=== PATIENT | female | born 1955 | race Caucasian/White ===

== ENCOUNTER → 2016-07-08 | Outpatient (CLI) | payer OTHER ==
[~2016-07-08] MED LIST: CETI10TA84 PO; CINNAMON PO; CITA20TA9 PO; Clonazepam PO; DILT240C56 PO; ELIQUIS PO; FLEC100T21 PO; FRRS300 PO; HYZ/50125 PO; LORA-741 PO; MAGN400T5 PO; METO-217 PO; MONT1TAB3 PO; MULT-506 PO; Metformin Hcl PO; OPTIRAY 320 IV PRN; POTASSIUM PO; ROSU20TA PO; VITAMIN E PO; glyburide PO
--- NOTE | 2016-07-08 15:48 | DIAGNOSTIC IMAGING REPORT ---
CHEST CT WITH CONTRAST CT DOSE: 2383.55 mGy.cm HISTORY: Ovarian carcinoma CT TECHNIQUE: Multiaxial CT images of the chest were performed following the intravenous administration of contrast. COMPARISON: 08/28/2010 FINDINGS: Lungs are considered clear. Subsegmental atelectasis posterior aspect right midlung. No significant nodular pathology on the current exam. No acute infiltrative process. Hilar and mediastinal regions remain negative for significant adenopathy. Thoracic aorta is normal in course and caliber. Axillary regions are unremarkable. Fatty infiltration of liver persists. Prior cholecystectomy change. IMPRESSION: 1. Generally stable exam the chest compared to the prior study. 2. Subsegmental atelectasis posterior right midlung. 3. Fatty infiltration of liver. 4. No evidence for new interval or progressive disease. No significant pulmonary nodularity on the current study. Electronically signed by: Genaro Adam M.D. 07/08/2016 3:46 PM Dictated Date/Time: 07/08/2016 3:42 PM
--- NOTE | 2016-07-08 15:59 | DIAGNOSTIC IMAGING REPORT ---
ABDOMEN AND PELVIS CT WITH IV AND ORAL CONTRAST CT DOSE: HISTORY: Ovarian cancer. Follow-up. TECHNIQUE: Multiaxial CT images of the abdomen and pelvis were performed following the use of intravenous and oral contrast. COMPARISON STUDY: Abdomen and pelvis CT outside hospital 11/10/2015. PET CT 01/19/2016. FINDINGS: Bibasilar linear densities favor subsegmental atelectasis. There is elevation the right hemidiaphragm, unchanged. Partially visualized central venous catheter terminates in the superior cavoatrial junction no suspicious lytic or blastic osseous lesions. Subcentimeter right cardiophrenic angle nodule/lymph nodes remain unchanged. Dominant nodule measures 6 mm. Hepatic steatosis. No hepatic or splenic masses. The adrenal glands, pancreas, and kidneys are unremarkable. No retroperitoneal lymphadenopathy. Punctate focus of gas within the bladder lumen. No bladder wall thickening. The uterus and ovaries are surgically absent. No pelvic lymphadenopathy. Cholecystectomy. No bowel wall thickening or obstruction. Normal appendix. There are few tiny perineal nodules within the right side the abdomen adjacent to the hepatic flexure of the colon and ascending colon. These remain unchanged. Dominant nodule measures up to 5 mm. IMPRESSION: No change from the prior studies. A few tiny omental soft tissue nodules within the right side of the abdomen are again noted. These remain stable in size but could represent minimal peritoneal carcinomatosis. Continued follow up is recommended. Electronically signed by: Nino Saravia M.D. 07/08/2016 3:57 PM Dictated Date/Time: 07/08/2016 3:47 PM
== END | disposition home or self-care (01) ==
LOC: C.CTS 13:41
PROVIDERS: ATTEND Internal Medicine Hematology & Oncology
DX: C56.9 Malignant neoplasm of unspecified ovary (principal); K66.8 Other specified disorders of peritoneum; J98.11 Atelectasis; K76.0 Fatty (change of) liver, not elsewhere classified

== ENCOUNTER → 2016-10-11 | Outpatient (CLI) | payer OTHER ==
[~2016-10-11] MED LIST changes: +DILT-203 PO; -DILT240C56 PO
--- NOTE | 2016-10-11 16:28 | DIAGNOSTIC IMAGING REPORT ---
CT SCAN OF THE ABDOMEN AND PELVIS WITH IV CONTRAST CLINICAL HISTORY: Ovarian cancer. COMPARISON STUDY: Abdominal CT dated 07/08/2016. PET/CT dated 01/19/2016. TECHNIQUE: Following the IV administration of 94 cc of Optiray 320, CT scan of the abdomen and pelvis is performed from the lung bases to the proximal femora. Images are reviewed in the axial, sagittal, and coronal planes. IV contrast was administered without complication. Automated dose control exposure was utilized. CT DOSE: 1191.39 mGycm FINDINGS: Lung bases: The heart is normal in size and without pericardial effusion. There is elevation of the right hemidiaphragm with right basilar atelectasis. The lung bases are otherwise clear. Liver: The contrast-enhanced liver is enlarged measuring 22.7 cm in length. The liver demonstrates diffusely diminished attenuation consistent with severe hepatic steatosis. There is no intrahepatic biliary ductal dilatation. The hepatic veins and portal veins are patent. Gallbladder: Surgically absent noting clips in the gallbladder fossa. Spleen: Normal in size and attenuation. Pancreas: Unremarkable. Adrenal glands: Unremarkable. Kidneys: The contrast enhanced kidneys are normal in size and without hydronephrosis. The kidneys enhance symmetrically. Abdominal vasculature: The abdominal aorta is normal in course and caliber noting mild to moderate atherosclerotic calcification. Bowel: The small bowel and colon are normal in course and caliber. The appendix is normal as visualized. Peritoneum: There is no intraperitoneal free air or abdominal ascites. Tiny foci of omental nodularity measure up to 6 mm have not significantly changed from prior studies. Slasher Runner nodules are seen in the right cardiophrenic region on image #112, in the right lower quadrant on images #285 and #310, and the left upper quadrant on image #237. There is a fat-containing umbilical hernia. Lymphadenopathy: None. Pelvic viscera: The bladder is normal as visualized. The uterus is surgically absent. No adnexal lesion is seen. Skeletal structures: The skeletal structures are osteopenic. There is mild lumbosacral spondylosis. No lytic or blastic lesions are seen. IMPRESSION: 1. There is no evidence of progressive metastatic disease. 2. Scattered tiny foci of omental nodularity are nonspecific and not significantly changed from prior studies. Tiny peritoneal implants are not excluded and continued attention at follow-up is recommended. There is no associated abdominal ascites. 3. No additional findings are identified concerning for intra-abdominal metastatic disease. 4. Hepatomegaly and severe hepatic steatosis. 5. Additional findings as above. Electronically signed by: Luis Adan M.D. 10/11/2016 4:26 PM Dictated Date/Time: 10/11/2016 4:18 PM
== END | disposition home or self-care (01) ==
LOC: C.CTS 13:01
PROVIDERS: ATTEND Internal Medicine Hematology & Oncology
DX: C56.9 Malignant neoplasm of unspecified ovary (principal); R16.0 Hepatomegaly, not elsewhere classified; K76.0 Fatty (change of) liver, not elsewhere classified

== ENCOUNTER → 2016-12-14 | Outpatient (CLI) | payer OTHER ==
--- NOTE | 2016-12-14 10:17 | DIAGNOSTIC IMAGING REPORT ---
(CHEST) THORAX WITH CLINICAL HISTORY: 61 years-old Female presenting with follow-up of ovarian cancer. TECHNIQUE: Multidetector CT imaging of the chest was performed after the administration of intravenous contrast. IV contrast: 93 mL of Optiray 320. A dose lowering technique was used consistent with the principles of ALARA (as low as reasonably achievable). COMPARISON: 07/08/2016. CT DOSE (mGy.cm): The estimated cumulative dose is 388.47 mGycm. FINDINGS: Enzyme Chemist topogram: Right internal jugular Mediport terminates in the region of the superior cavoatrial junction. On soft tissue windows, normal thyroid and thoracic inlet. No axillary, supraclavicular, hilar, or mediastinal lymphadenopathy. Few prominent pericardial lymph nodes, nonspecific. These are unchanged from prior. Normal aorta. Normal heart size. No pericardial or pleural effusion. Hepatic steatosis suggested. Cholecystectomy clips. On lung windows, persistent bandlike opacity in the superior segment of the right upper lobe. Lungs otherwise clear. Airways patent. On bone windows, degenerative changes of the spine. IMPRESSION: 1. No evidence of intrathoracic metastatic disease. No lymphadenopathy. 2. Persistent right lung scarring or atelectasis. 3. Hepatic steatosis. Electronically signed by: Barrie Salmeron M.D. 12/14/2016 10:16 AM Dictated Date/Time: 12/14/2016 10:11 AM
== END | disposition home or self-care (01) ==
LOC: C.CTS 09:42
PROVIDERS: ATTEND Internal Medicine Hematology & Oncology
DX: C56.9 Malignant neoplasm of unspecified ovary (principal); K76.0 Fatty (change of) liver, not elsewhere classified

== ENCOUNTER → 2017-01-11 | Outpatient (CLI) | payer OTHER ==
[~2017-01-11] MED LIST changes: -OPTIRAY 320 IV PRN
--- NOTE | 2017-01-12 13:38 | MAMMOGRAPHY REPORT ---
BILATERAL DIGITAL SCREENING MAMMOGRAM TOMOSYNTHESIS WITH CAD: 01/11/2017 CLINICAL HISTORY: Routine screening. TECHNIQUE: Breast tomosynthesis in addition to standard 2D mammography was performed. Current study was also evaluated with a Computer Aided Detection (CAD) system. COMPARISON: Comparison is made to exams dated: 12/25/2015 mammogram, 11/28/2014 mammogram, 12/10/2013 ma mmogram, 11/27/2013 mammogram, 11/22/2012 mammogram, and 11/10/2011 mammogram - [facility] ter. BREAST COMPOSITION: The tissue of both breasts is heterogeneously dense, which may obscure small mas ses. FINDINGS: There are benign coarse and round microcalcifications scattered bilaterally. Stable nodul arity in the medial left breast. No suspicious spiculated or irregular mass, architectural distortion or cluster of new, suspicious microcalcifications is seen. IMPRESSION: ACR BI-RADS CATEGORY 2: BENIGN There is no mammographic evidence of malignancy. A 1 year screening mammogram is recommended. The pa tient will receive written notification of the results. Approximately 10% of breast cancers are not detected with mammography. A negative mammographic report should not delay biopsy if a clinically suggestive mass is present. Barbi Godfrey M.D. ay/:01/11/2017 15:43:08 Construction Stonemason: Julien MUSE)(Sahra), [facility] letter sent: Normal 1/2 BI-RADS Code: ACR BI-RADS Category 2: Benign
== END | disposition home or self-care (01) ==
LOC: C.MAMM 10:38
PROVIDERS: ATTEND Obstetrics & Gynecology
DX: Z12.31 Encounter for screening mammogram for malignant neoplasm of breast (principal)

== ENCOUNTER → 2017-04-14 | Outpatient (CLI) | payer OTHER ==
[~2017-04-14] MED LIST changes: +OPTIRAY 320 IV PRN
--- NOTE | 2017-04-14 16:25 | DIAGNOSTIC IMAGING REPORT ---
(CHEST) THORAX WITH CT DOSE: 1751.92 mGycm HISTORY: Ovarian carcinoma OVARIAN CA TECHNIQUE: Multiaxial CT images of the chest were performed following the intravenous administration of contrast. A dose lowering technique was utilized adhering to the principles of ALARA. COMPARISON: 12/14/2016 FINDINGS: Unchanging linear scarring of the right lung. No new or interval finding. No significant nodular pathology. Several small mid mediastinal nodes unchanged and technically considered to be low suspicion. These again are unchanged and stable. Thoracic aorta is normal in course and caliber. Central catheter in superior vena cava. Persistent hepatomegaly with components of fatty infiltration. IMPRESSION: Chronic change. No acute process. No evidence for metastatic disease in the chest. The above report was generated using voice recognition software. It may contain grammatical, syntax or spelling errors. Electronically signed by: Genaro Adam M.D. 04/14/2017 4:23 PM Dictated Date/Time: 04/14/2017 4:20 PM
--- NOTE | 2017-04-14 16:34 | DIAGNOSTIC IMAGING REPORT ---
ABD/PELVIS IV AND ORAL CONT CT DOSE: HISTORY: Ovarian carcinoma OVARIAN CA TECHNIQUE: Multiaxial CT images of the abdomen and pelvis were performed following the use of intravenous and oral contrast. A dose lowering technique was utilized adhering to the principles of ALARA. COMPARISON STUDY: 10/11/2016 FINDINGS: Unchanged examination compared to the prior study. Fatty replacement of the liver with evidence for stable hepatomegaly. Unchanging findings of a prior cholecystectomy. The spleen is uniform. Pancreas adrenal glands and kidneys are unremarkable. Pattern is nonobstructive. Minimal omental nodularity previously described remains stable. There is no evidence for progressive nodular pathology. All nodules produces described again are stable. No significant adenopathy within the abdominal or pelvic region. IMPRESSION: 1. Stable unchanged exam compared to the prior study. 2. Unchanging O mental micronodularity . No evidence for new interval or progressive omental nodules. 3. Unchanging hepatomegaly with underlying fatty replacement The above report was generated using voice recognition software. It may contain grammatical, syntax or spelling errors. Electronically signed by: Genaro Adam M.D. 04/14/2017 4:32 PM Dictated Date/Time: 04/14/2017 4:26 PM
== END | disposition home or self-care (01) ==
LOC: C.CTS 14:27
PROVIDERS: ATTEND Internal Medicine Hematology & Oncology
DX: C56.9 Malignant neoplasm of unspecified ovary (principal); K66.8 Other specified disorders of peritoneum; R16.0 Hepatomegaly, not elsewhere classified; K76.0 Fatty (change of) liver, not elsewhere classified

== ENCOUNTER 2021-10-07 09:51 | Inpatient (IN) ==
[2021-10-07 11:21] LABS: Albumin Globulin Ratio 1.4 (0.9-2); Albumin Level 3.5 gm/dl (3.4-5.0); Bilirubin,Total 0.7 mg/dl (0.2-1.0); Calcium 8.4 mg/dl (8.5-10.1); Creatinine Clr Calc Pharmacy 46.8 ml/min; Est GFR (African American) 47.6 ml/min; Est GFR (Non-African American) 41.1 ml/min; Globulin 2.5 gm/dl (2.5-4.0); Potassium 4.5 mmol/L (3.5-5.1)
[2021-10-07 11:22] LABS: Troponin I High Sensitivity 7.1 pg/ml (0-14)
--- NOTE | 2021-10-07 11:24 | Emergency Department Note ---
History of Present Illness General Chief complaint: Shortness of Breath/Dyspnea Stated complaint: SOB, CRACKLING IN LUNGS, HYPERTENSION Time Seen by Provider: 10/07/21 10:57 History of Present Illness Provider complaint: shortness of breath, fatigue, sent from cardiology office This is a 66 yo female who presents after being referred from her outpatient senior quality analyst during a routine appointment after discussing her fatigue, lightheadedness, and dyspnea. Staff performed orthostatics in the office which were positive and she was referred to the ER. Patient does have a hx of metastatic ovarian cancer and is receiving chemo every other week. Last infusion was last week. She also takes tamoxifen daily. She states she began to develop slight congestion and cough, with worsening dyspnea with exertion and lighteadedness with standing and position change. She states she first began notiving symptoms last . She denies chest pain, palpitations, leg swelling, abdominal pain, or fevers. No known sick contacts. Patient does take eliquis due to hx of a.fib. No prior need for blood transfusions. She denies melena or hematochezia. No hx of bleeding from other sites. Patient initially seen in conjunction with the family practice resident Dr. Moran. Pt seen during a time of high acuity and national emergency pandemic while wearing PPE. Home Medications Medication Instructions Recorded Confirmed Type multivitamin 1 tab PO DAILY #0 11/11/09 10/07/21 History magnesium oxide 400 mg PO DAILY #0 tab 07/18/12 10/07/21 History montelukast 10 mg tablet 10 mg PO HS #0 tab 07/18/12 10/07/21 History (Singulair) cetirizine 10 mg tablet 10 mg PO DAILY #0 tab 08/11/15 10/07/21 History clonazepam 1 mg tablet 1 mg PO HS #0 08/11/15 10/07/21 History flecainide 100 mg tablet 100 mg PO QPM #0 tab 08/11/15 10/07/21 History glyburide 5 mg tablet 5 mg PO DAILY #0 08/11/15 10/07/21 History metformin 750 mg tablet,extended 750 mg PO BID #0 08/11/15 10/07/21 History release 24 hr metoprolol succinate 50 mg 50 mg PO HS #30 tab 08/11/15 10/07/21 History tablet,extended release 24 hr rosuvastatin 20 mg tablet (Crestor) 20 mg PO DAILY 30 Days #30 tab 08/11/15 10/07/21 History lorazepam 0.5 mg tablet 0.5 mg PO DAILY PRN #0 tab 08/18/15 10/07/21 History diltiazem HCl 30 mg tablet 30 mg PO BID 04/19/19 10/07/21 History (Cardizem) docusate sodium 100 mg tablet 200 mg PO HS 04/19/19 10/07/21 History (Stool Softener) fluoxetine 40 mg capsule (Prozac) 40 mg PO QAM 04/19/19 10/07/21 History trazodone 50 mg tablet 75 mg PO HS PRN 04/19/19 10/07/21 History flecainide 50 mg tablet 50 mg PO DAILY 10/07/21 10/07/21 History zolpidem 5 mg tablet (Ambien) 5 mg PO HS PRN 10/07/21 10/07/21 History cephalexin 500 mg capsule 500 mg PO BID #4 cap 10/08/21 Rx Allergies Allergy/AdvReac Type Severity Reaction Status Date / Time codeine Allergy Unknown itchy, Verified 10/07/21 16:20 nausea lisinopril Allergy Unknown Cough Verified 10/07/21 16:20 prochlorperazine AdvReac Mild Nausea Verified 10/07/21 16:20 [From Compazine] Sulfa (Sulfonamide AdvReac Mild Stomach Verified 10/07/21 16:20 Antibiotics) upset azithromycin AdvReac Nausea Verified 10/07/21 16:20 CONTRAST MEDIA AdvReac Mild RASH, Uncoded 10/07/21 16:20 TINGLING IN HANDS Past Med/Surg History Medical History (Updated 10/09/21 @ 00:01 by Jolene Roca DO) Anxiety Atrial fibrillation Cancer ovarian Depression Diabetes mellitus, type 2 GERD (gastroesophageal reflux disease) Hypothyroidism Osteoarthritis Peripheral neuropathy Supraclavicular lymphadenopathy Surgical History (Updated 10/07/21 @ 14:45 by Latrell Valadez) H/O colonoscopy History of cardiac cath History of cholecystectomy History of hysterectomy History of hysterectomy with bilateral oophorectomy History of nasal septoplasty History of tonsillectomy History of vascular access device Family History (Updated 10/07/21 @ 14:38 by Latrell Valadez) Mother , age 86 COPD (chronic obstructive pulmonary disease) Father Lung cancer Social History (Updated 10/08/21 @ 00:18 by Latrell Valadez) Smoking Status: Former smoker Tobacco Type: Cigarettes packs per day: 0.25; Years Smoked: 40; Second Hand Exposure: No; Hx Alcohol Use: No Hx Substance Use: No Preferred Language: Omani Communication Ability: Effective Stage Settings Painter Required: No Beliefs That Will Affect Care: None marital status: Current Living Situation: Spouse current occupational status: employed current occupation: works at [employer] How many Children do You have: 0 Feels Safe at Home: Yes Assistive Devices: None Review of Systems A total of 10 systems reviewed and were otherwise negative All systems reviewed & are unremarkable except as noted in HPI & below Physical Exam Vital Signs Vital Signs - 24 hr 10/07/21 09:52 10/07/21 09:57 10/07/21 10:59 Temperature 36.4 C L Temperature Source Temporal Artery Scan Pulse Rate 76 Respiratory Rate 20 Respiratory Effort / Characteristics Non-Labored Spontaneous Non-Labored Spontaneous Respiratory Depth Normal Respiratory Pattern Regular Blood Pressure 108/50 L Blood Pressure Mean 69 Blood Pressure Position Sitting Pulse Oximetry 97 97 Oxygen Delivery Method Room Air Room Air Room Air Oxygen Flow Rate 98 Sepsis Recent Fever Within 48 Hours No Sepsis New/Unexplained Change in Mental Status N/A Sepsis Action Taken by Nursing No Action Required 10/07/21 11:00 10/07/21 11:42 10/07/21 12:01 Temperature Temperature Source Pulse Rate 67 82 66 Respiratory Rate 19 20 22 Respiratory Effort / Characteristics Respiratory Depth Respiratory Pattern Blood Pressure 125/70 112/85 112/39 L Blood Pressure Mean 88 94 63 Blood Pressure Position Pulse Oximetry 96 98 97 Oxygen Delivery Method Oxygen Flow Rate Sepsis Recent Fever Within 48 Hours Sepsis New/Unexplained Change in Mental Status Sepsis Action Taken by Nursing 10/07/21 12:30 10/07/21 13:00 10/07/21 14:00 Temperature Temperature Source Pulse Rate 65 63 65 Respiratory Rate 28 H 24 23 Respiratory Effort / Characteristics Respiratory Depth Respiratory Pattern Blood Pressure 136/55 L 130/70 127/63 Blood Pressure Mean 82 90 84 Blood Pressure Position Pulse Oximetry 96 94 96 Oxygen Delivery Method Oxygen Flow Rate Sepsis Recent Fever Within 48 Hours Sepsis New/Unexplained Change in Mental Status Sepsis Action Taken by Nursing GENERAL: alert, unwell appearing, well nourished, no distress, non-toxic EYE EXAM: normal conjunctiva, PERRL and EOM's grossly intact OROPHARYNX: no exudate, no erythema, lips, buccal mucosa, and tongue normal and mucous membranes are moist NECK: supple, no nuchal rigidity, no adenopathy, non-tender LUNGS: Clear to auscultation. Normal chest wall mechanics, no w/r/r HEART: no murmurs, S1 normal and S2 normal ABDOMEN: abdomen soft, non-tender, normo-active bowel sounds, no masses, no rebound or guarding. BACK: Back is symmetrical on inspection and there is no deformity, no midline tenderness, no CVA tenderness. SKIN: no rashes and no bruising, pallor UPPER EXTREMITIES: upper extremities are grossly normal. FROM, nml pulses b/l. LOWER EXTREMITIES: No pitting edema. FROM, nml pulses b/l. NEURO EXAM: Normal sensorium, cranial nerves II-XII grossly intact, normal speech, no gross weakness of arms, no gross weakness of legs. Gross sensation intact. Course Administered Medications Discontinued Medications Cephalexin HCl (Cephalexin 500 Mg Cap) 500 mg PO NOW [facility] Stop: 10/07/21 15:19 Last Admin: 10/07/21 15:26 Dose: 500 mg Documented by: [id number] Cephalexin HCl (Cephalexin 500 Mg Cap) 500 mg PO BID [facility]; Protocol Stop: 10/12/21 20:59 Last Admin: 10/08/21 07:50 Dose: 500 mg Documented by: [id number] Admin: 10/07/21 20:25 Dose: 500 mg Documented by: [id number] Cetirizine HCl (Cetirizine Hcl 10 Mg Tablet) 10 mg PO DAILY [facility] Stop: 11/07/21 08:59 Last Admin: 10/08/21 07:50 Dose: 10 mg Documented by: [id number] Clonazepam (Clonazepam 1 Mg Tab) 1 mg PO HS [facility] Stop: 11/06/21 20:59 Last Admin: 10/07/21 21:25 Dose: 1 mg Documented by: [id number] Diltiazem HCl (Diltiazem Hcl 30 Mg Tab) 30 mg PO BID [facility] Stop: 11/06/21 20:59 Last Admin: 10/08/21 07:50 Dose: 30 mg Documented by: [id number] Admin: 10/07/21 20:26 Dose: 30 mg Documented by: [id number] Flecainide Acetate (Flecainide Acetate 100 Mg Tablet) 100 mg PO Q12 [facility] Stop: 11/06/21 20:59 Last Admin: 10/08/21 07:50 Dose: 100 mg Documented by: [id number] Admin: 10/07/21 20:25 Dose: 100 mg Documented by: [id number] Fluoxetine HCl (Fluoxetine Hcl 20 Mg Cap) 40 mg PO QAM [facility] Stop: 11/07/21 08:59 Last Admin: 10/08/21 07:51 Dose: 40 mg Documented by: [id number] Furosemide (Furosemide Inj 20 Mg/2 Ml Vial) 20 mg IV ONE ONE Stop: 10/08/21 00:14 Last Admin: 10/08/21 00:28 Dose: 20 mg Documented by: [id number] Gabapentin (Gabapentin 300 Mg Cap) 300 mg PO HS [facility] Stop: 11/06/21 20:59 Last Admin: 10/07/21 20:31 Dose: Not Given Documented by: [id number] Heparin Sodium (Porcine) (Heparin 100 Unit/Ml 5ml Flush) 5 ml FLUSH PRN PRN PRN Reason: Flush Stop: 11/07/21 06:24 Last Admin: 10/08/21 07:13 Dose: 5 ml Documented by: [id number] Iron Sucrose 300 mg/ Sodium (Chloride) 265 mls @ 176.667 mls/hr IV TODAY@0900 ONE Stop: 10/08/21 10:29 Last Infusion: 10/08/21 09:28 Dose: 0 mls/hr Documented by: [id number] Admin: 10/08/21 07:49 Dose: 176.7 mls/hr Documented by: [id number] Magnesium Sulfate/Dextrose (Magnesium Sulfate / D5w) 1 gm in 100 mls @ 50 mls/hr IV Q2H [facility] Stop: 10/08/21 15:29 Last Admin: 10/08/21 15:33 Dose: 50 mls/hr Documented by: [id number] Infusion: 10/08/21 15:32 Dose: 0 mls/hr Documented by: [id number] Admin: 10/08/21 13:35 Dose: 50 mls/hr Documented by: [id number] Infusion: 10/08/21 13:34 Dose: 0 mls/hr Documented by: [id number] Admin: 10/08/21 11:26 Dose: 50 mls/hr Documented by: [id number] Infusion: 10/08/21 11:26 Dose: 0 mls/hr Documented by: [id number] Infusion: 10/08/21 11:25 Dose: 0 mls/hr Documented by: [id number] Admin: 10/08/21 09:37 Dose: 50 mls/hr Documented by: [id number] Insulin Aspart (Insulin Aspart Per Unit) 0 units SC ACHS [facility] Stop: 11/06/21 17:40 Last Admin: 10/08/21 17:05 Dose: Not Given Documented by: [id number] Admin: 10/08/21 12:01 Dose: Not Given Documented by: [id number] Admin: 10/08/21 08:03 Dose: Not Given Documented by: [id number] Admin: 10/07/21 20:24 Dose: Not Given Documented by: [id number] Admin: 10/07/21 18:26 Dose: Not Given Documented by: [id number] Levothyroxine Sodium ([facility]othyroxine S[facility] 50 Mcg Tablet) [facility]: 11/07/21 06:29 Last Admin: 10/08/21 06:07 Dose: Not Given Documented by: [id number] Magnesium Oxide (Magnesium Oxide 400 Mg Tab) 400 mg PO DAILY [facility] Stop: 11/07/21 08:59 Last Admin: 10/08/21 07:51 Dose: 400 mg Documented by: [id number] Metoprolol Succinate (Metoprolol Succ 50mg Ext Rel Tab) 50 mg PO [facility] Stop: 11/06/21 20:59 Last Admin: 10/07/21 21:23 Dose: 50 mg Documented by: [id number] Montelukast Sodium (Montelukast Sodium 10 Mg Tablet) 10 mg PO HS [facility] Stop: 11/06/21 20:59 Last Admin: 10/07/21 21:23 Dose: 10 mg Documented by: [id number] Multivitamins (Multivitamin Tab) 1 tab PO DAILY [facility] Stop: 11/07/21 08:59 Last Admin: 10/08/21 07:51 Dose: 1 tab Documented by: [id number] Ondansetron HCl (Ondansetron Inj 2 Mg/Ml 2 Ml Vial) 4 mg IV NOW STA Stop: 10/07/21 15:50 Last Admin: 10/07/21 16:03 Dose: 4 mg Documented by: [id number] Ondansetron HCl (Ondansetron Inj 2 Mg/Ml 2 Ml Vial) 4 mg IV Q6H PRN PRN Reason: Nausea Stop: 11/06/21 17:40 Last Admin: 10/08/21 15:33 Dose: 4 mg Documented by: [id number] Admin: 10/08/21 07:54 Dose: 4 mg Documented by: [id number] Pantoprazole Sodium (Pantoprazole 40 Mg Tab) 40 mg PO QAM [facility] Stop: 11/07/21 08:59 Last Admin: 10/08/21 07:50 Dose: 40 mg Documented by: [id number] Rosuvastatin Calcium (Rosuvastatin Calcium 20 Mg Tab) 20 mg PO DAILY [facility] Stop: 11/07/21 08:59 Last Admin: 10/08/21 07:51 Dose: 20 mg Documented by: [id number] Senna/Docusate Sodium (Docusate Sodium/Senna 50/8.6mg Tab) 2 tab PO HS [facility] Stop: 11/06/21 20:59 Last Admin: 10/07/21 20:25 Dose: 2 tab Documented by: [id number] Simethicone (Simethicone 80 Mg Chew) 80 mg PO Q6H PRN PRN Reason: bloating, gas Stop: 11/06/21 19:47 Last Admin: 10/07/21 21:23 Dose: 80 mg Documented by: [id number] Critical Care Time Critical Care Time: Yes Total Critical Care Time: 35 Critical care of 35 min performed to assess and manage high likelihood of life- threatening anemia, involving labs and imaging performed with assessment to evaluate anemia and SOB diagnosis with frequent reassessment. This time includes bedside time, treatment discussions with patient/family/consultants, documentation time and excludes procedure time. Medical Decision Making Differential Diagnosis Differential diagnoses includes but is not limited to pneumonia, bronchitis, COPD/Asthma exacerbation, pneumothorax, pulmonary embolism, congestive heart failure, acute coronary syndrome Medical Records Attestation: I reviewed the patient's medical records. Home Medications Current Medication List: was personally reviewed by me Laboratory Data Attestation: I reviewed the patient's lab results. Result diagrams: 10/08/21 06:20 10/08/21 06:20 Lab Results 10/07/21 10/07/21 10/07/21 Range/Units 10:34 10:34 10:34 WBC 6.29 (4.8-10.8) K/ul RBC 1.07 L (3.93-5.22) M/uL Hgb 3.8 L* (12.0-16.0) g/dl Hct 12.2 L* (34.1-44.9) % MCV 114.0 H (80.0-100.0) fL MCH 35.5 H (25.0-34.0) pg MCHC 31.1 L (32.0-36.0) g/dL RDW Std Deviation 93.5 H (36.4-46.3) fL RDW Coeff of Teddy 23.0 H (11.5-14.5) % Plt Count 42 L (130-400) K/uL MPV 11.5 (9.4-12.3) fL Immature Gran % (Auto) 0.6 % Neut % (Auto) 71.0 % Lymph % (Auto) 13.8 % [place] % (Auto) 14.1 % Eos % (Auto) 0.3 % Baso % (Auto) 0.2 % Neut # (Auto) 4.46 (1.4-6.5) K/uL Lymph # (Auto) 0.87 L (1.2-3.4) K/uL [place] # (Auto) 0.89 H (0.24-0.82) K/uL Eos # (Auto) 0.02 (0-0.50) K/uL Baso # (Auto) 0.01 (0-0.2) K/uL Immature Gran # (Auto) 0.04 H (0.00-0.02) K/uL Absolute Nucleated RBC 0.03 H (0-0) K/uL Nucleated RBC % (auto) 0.5 % Anisocytosis Present Macrocytosis Present PT 12.2 H (9.0-12.0) Seconds INR 1.2 H (0.9-1.1) APTT 71.8 H* (21.0-31.0) Seconds PTT Ratio 2.6 VBG pH (7.36-7.41) VBG pCO2 (38-50) mmHg VBG pO2 mmHg VBG HCO3 mmol/L VBG O2 Saturation % VBG Base Excess mEq/L Sodium 136 (136-145) mmol/L Potassium 4.5 (3.5-5.1) mmol/L Chloride 103 (98-107) mmol/L Carbon Dioxide 23 (21-32) mmol/L Anion Gap 10 (3-11) BUN 31 H (6-23) mg/dl Creatinine 1.35 H (0.6-1.2) mg/dl Est Cr Clr Drug Dosing 46.8 ml/min Est GFR ( Amer) 47.6 ml/min Est GFR (Non-Af Amer) 41.1 ml/min BUN/Creatinine Ratio 23.0 H (10-20) Glucose 188 H (70-99(Fasting)) mg/dl Calcium 8.4 L (8.5-10.1) mg/dl Iron (35-150) mcg/dl TIBC (250-450) mcg/dl Unsaturated IBC (155-355) mcg/dl Transferrin % Sat (15-50) % Ferritin (8-388) ng/ml Total Bilirubin 0.7 (0.2-1.0) mg/dl AST 15 (13-39) U/L ALT 10 (7-52) U/L Alkaline Phosphatase 54 (34-104) U/L Troponin I High Sens 7.1 (0-14) pg/ml Total Protein 6.0 (6.0-8.3) gm/dl Albumin 3.5 (3.4-5.0) gm/dl Globulin 2.5 (2.5-4.0) gm/dl Albumin/Globulin Ratio 1.4 (0.9-2) Vitamin B12 (180-914) pg/ml Folate (>5.38) ng/ml TSH (0.300-4.500) uIu/ml Urine Color Urine Appearance (Clear) Urine pH (4.5-7.5) Ur Specific Jeannette (1.000-1.030) Urine Protein (Negative) Urine Glucose (UA) (Negative) Urine Ketones (Negative) Urine Blood (Negative) Urine Nitrite (Negative) Urine Bilirubin (Negative) Urine Urobilinogen (Negative) Ur Leukocyte Esterase (Negative) Urine WBC (Auto) (0-5) /hpf Urine RBC (Auto) (0-4) /hpf U Hyaline Cast (Auto) (0-5) /lpf U Epithel Cells (Auto) (0-5) /lpf Urine Bacteria (Auto) (Negative) SARS-CoV-2 (PCR) (Negative) SARS-CoV-2 RNA (ARIA) Blood Type Antibody Screen Antibody Identification Antibody ID Comment Antigen Identification Crossmatch 10/07/21 10/07/21 10/07/21 Range/Units 10:34 10:34 10:34 WBC (4.8-10.8) K/ul RBC (3.93-5.22) M/uL Hgb (12.0-16.0) g/dl Hct (34.1-44.9) % MCV (80.0-100.0) fL MCH (25.0-34.0) pg MCHC (32.0-36.0) g/dL RDW Std Deviation (36.4-46.3) fL RDW Coeff of Teddy (11.5-14.5) % Plt Count (130-400) K/uL MPV (9.4-12.3) fL Immature Gran % (Auto) % Neut % (Auto) % Lymph % (Auto) % [place] % (Auto) % Eos % (Auto) % Baso % (Auto) % Neut # (Auto) (1.4-6.5) K/uL Lymph # (Auto) (1.2-3.4) K/uL [place] # (Auto) (0.24-0.82) K/uL Eos # (Auto) (0-0.50) K/uL Baso # (Auto) (0-0.2) K/uL Immature Gran # (Auto) (0.00-0.02) K/uL Absolute Nucleated RBC (0-0) K/uL Nucleated RBC % (auto) % Anisocytosis Macrocytosis PT (9.0-12.0) Seconds INR (0.9-1.1) APTT (21.0-31.0) Seconds PTT Ratio VBG pH (7.36-7.41) VBG pCO2 (38-50) mmHg VBG pO2 mmHg VBG HCO3 mmol/L VBG O2 Saturation % VBG Base Excess mEq/L Sodium (136-145) mmol/L Potassium (3.5-5.1) mmol/L Chloride (98-107) mmol/L Carbon Dioxide (21-32) mmol/L Anion Gap (3-11) BUN (6-23) mg/dl Creatinine (0.6-1.2) mg/dl Est Cr Clr Drug Dosing ml/min Est GFR ( Amer) ml/min Est GFR (Non-Af Amer) ml/min BUN/Creatinine Ratio (10-20) Glucose (70-99(Fasting)) mg/dl Calcium (8.5-10.1) mg/dl Iron 111 (35-150) mcg/dl TIBC 460 H (250-450) mcg/dl Unsaturated IBC 349 (155-355) mcg/dl Transferrin % Sat 24 (15-50) % Ferritin 26.3 (8-388) ng/ml Total Bilirubin (0.2-1.0) mg/dl AST (13-39) U/L ALT (7-52) U/L Alkaline Phosphatase (34-104) U/L Troponin I High Sens (0-14) pg/ml Total Protein (6.0-8.3) gm/dl Albumin (3.4-5.0) gm/dl Globulin (2.5-4.0) gm/dl Albumin/Globulin Ratio (0.9-2) Vitamin B12 > 1500 H (180-914) pg/ml Folate > 22.30 (>5.38) ng/ml TSH 3.682 (0.300-4.500) uIu/ml Urine Color Urine Appearance (Clear) Urine pH (4.5-7.5) Ur Specific [place]ann[place] (1.000-1.030) Urine Protein (Negative) Urine Glucose (UA) (Negative) Urine Ketones (Negative) Urine Blood (Negative) Urine Nitrite (Negative) Urine Bilirubin (Negative) Urine Urobilinogen (Negative) Ur Leukocyte Esterase (Negative) Urine WBC (Auto) (0-5) /hpf Urine RBC (Auto) (0-4) /hpf U Hyaline Cast (Auto) (0-5) /lpf U Epithel Cells (Auto) (0-5) /lpf Urine Bacteria (Auto) (Negative) SARS-CoV-2 (PCR) (Negative) SARS-CoV-2 RNA (ARIA) Blood Type Antibody Screen Antibody Identification Antibody ID Comment Antigen Identification Crossmatch 10/07/21 10/07/21 10/07/21 Range/Units 11:25 11:25 11:25 WBC (4.8-10.8) K/ul RBC (3.93-5.22) M/uL Hgb 4.0 L* (12.0-16.0) g/dl Hct 13.0 L* (34.1-44.9) % MCV (80.0-100.0) fL MCH (25.0-34.0) pg MCHC (32.0-36.0) g/dL RDW Std Deviation (36.4-46.3) fL RDW Coeff of Teddy (11.5-14.5) % Plt Count (130-400) K/uL MPV (9.4-12.3) fL Immature Gran % (Auto) % Neut % (Auto) % Lymph % (Auto) % [place] % (Auto) % Eos % (Auto) % Baso % (Auto) % Neut # (Auto) (1.4-6.5) K/uL Lymph # (Auto) (1.2-3.4) K/uL [place] # (Auto) (0.24-0.82) K/uL Eos # (Auto) (0-0.50) K/uL Baso # (Auto) (0-0.2) K/uL Immature Gran # (Auto) (0.00-0.02) K/uL Absolute Nucleated RBC (0-0) K/uL Nucleated RBC % (auto) % Anisocytosis Macrocytosis PT (9.0-12.0) Seconds INR (0.9-1.1) APTT (21.0-31.0) Seconds PTT Ratio VBG pH 7.42 H (7.36-7.41) VBG pCO2 39 (38-50) mmHg VBG pO2 29 mmHg VBG HCO3 25 mmol/L VBG O2 Saturation < 60.0 % VBG Base Excess 0.8 mEq/L Sodium (136-145) mmol/L Potassium (3.5-5.1) mmol/L Chloride (98-107) mmol/L Carbon Dioxide (21-32) mmol/L Anion Gap (3-11) BUN (6-23) mg/dl Creatinine (0.6-1.2) mg/dl Est Cr Clr Drug Dosing ml/min Est GFR ( Amer) ml/min Est GFR (Non-Af Amer) ml/min BUN/Creatinine Ratio (10-20) Glucose (70-99(Fasting)) mg/dl Calcium (8.5-10.1) mg/dl Iron (35-150) mcg/dl TIBC (250-450) mcg/dl Unsaturated IBC (155-355) mcg/dl Transferrin % Sat (15-50) % Ferritin (8-388) ng/ml Total Bilirubin (0.2-1.0) mg/dl AST (13-39) U/L ALT (7-52) U/L Alkaline Phosphatase (34-104) U/L Troponin I High Sens (0-14) pg/ml Total Protein (6.0-8.3) gm/dl Albumin (3.4-5.0) gm/dl Globulin (2.5-4.0) gm/dl Albumin/Globulin Ratio (0.9-2) Vitamin B12 (180-914) pg/ml Folate (>5.38) ng/ml TSH (0.300-4.500) uIu/ml Urine Color Urine Appearance (Clear) Urine pH (4.5-7.5) Ur Specific [place] (1.000-1.030) Urine Protein (Negative) Urine Glucose (UA) (Negative) Urine Ketones (Negative) Urine Blood (Negative) Urine Nitrite (Negative) Urine Bilirubin (Negative) Urine Urobilinogen (Negative) Ur Leukocyte Esterase (Negative) Urine WBC (Auto) (0-5) /hpf Urine RBC (Auto) (0-4) /hpf U Hyaline Cast (Auto) (0-5) /lpf U Epithel Cells (Auto) (0-5) /lpf Urine Bacteria (Auto) (Negative) SARS-CoV-2 (PCR) (Negative) SARS-CoV-2 RNA (ARIA) Blood Type O Positive Antibody Screen POSITIVE A Antibody Identification Anti-K Antibody ID Comment Antigen Identification K Antigen - NEGATIVE Crossmatch See Detail 10/07/21 10/07/21 10/07/21 Range/Units 11:25 11:25 11:40 WBC (4.8-10.8) K/ul RBC (3.93-5.22) M/uL Hgb (12.0-16.0) g/dl Hct (34.1-44.9) % MCV (80.0-100.0) fL MCH (25.0-34.0) pg MCHC (32.0-36.0) g/dL RDW Std Deviation (36.4-46.3) fL RDW Coeff of Teddy (11.5-14.5) % Plt Count (130-400) K/uL MPV (9.4-12.3) fL Immature Gran % (Auto) % Neut % (Auto) % Lymph % (Auto) % [place] % (Auto) % Eos % (Auto) % Baso % (Auto) % Neut # (Auto) (1.4-6.5) K/uL Lymph # (Auto) (1.2-3.4) K/uL [place] # (Auto) (0.24-0.82) K/uL Eos # (Auto) (0-0.50) K/uL Baso # (Auto) (0-0.2) K/uL Immature Gran # (Auto) (0.00-0.02) K/uL Absolute Nucleated RBC (0-0) K/uL Nucleated RBC % (auto) % Anisocytosis Macrocytosis PT (9.0-12.0) Seconds INR (0.9-1.1) APTT (21.0-31.0) Seconds PTT Ratio VBG pH (7.36-7.41) VBG pCO2 (38-50) mmHg VBG pO2 mmHg VBG HCO3 mmol/L VBG O2 Saturation % VBG Base Excess mEq/L Sodium (136-145) mmol/L Potassium (3.5-5.1) mmol/L Chloride (98-107) mmol/L Carbon Dioxide (21-32) mmol/L Anion Gap (3-11) BUN (6-23) mg/dl Creatinine (0.6-1.2) mg/dl Est Cr Clr Drug Dosing ml/min Est GFR ( Amer) ml/min Est GFR (Non-Af Amer) ml/min BUN/Creatinine Ratio (10-20) Glucose (70-99(Fasting)) mg/dl Calcium (8.5-10.1) mg/dl Iron (35-150) mcg/dl TIBC (250-450) mcg/dl Unsaturated IBC (155-355) mcg/dl Transferrin % Sat (15-50) % Ferritin (8-388) ng/ml Total Bilirubin (0.2-1.0) mg/dl AST (13-39) U/L ALT (7-52) U/L Alkaline Phosphatase (34-104) U/L Troponin I High Sens (0-14) pg/ml Total Protein (6.0-8.3) gm/dl Albumin (3.4-5.0) gm/dl Globulin (2.5-4.0) gm/dl Albumin/Globulin Ratio (0.9-2) Vitamin B12 (180-914) pg/ml Folate (>5.38) ng/ml TSH (0.300-4.500) uIu/ml Urine Color Yellow Urine Appearance Clear (Clear) Urine pH 6.5 (4.5-7.5) Ur Specific Jeannette 1.010 (1.000-1.030) Urine Protein Negative (Negative) Urine Glucose (UA) Negative (Negative) Urine Ketones Negative (Negative) Urine Blood Negative (Negative) Urine Nitrite Negative (Negative) Urine Bilirubin Negative (Negative) Urine Urobilinogen Negative (Negative) Ur Leukocyte Esterase Trace H (Negative) Urine WBC (Auto) 1-5 (0-5) /hpf Urine RBC (Auto) 0-4 (0-4) /hpf U Hyaline Cast (Auto) 0 (0-5) /lpf U Epithel Cells (Auto) 10-20 H (0-5) /lpf Urine Bacteria (Auto) 2+ H (Negative) SARS-CoV-2 (PCR) NEGATIVE (Negative) SARS-CoV-2 RNA (ARIA) Cancelled Blood Type Antibody Screen Antibody Identification Antibody ID Comment Antigen Identification Crossmatch Imaging Data Radiologist's Impression: Chest X-Ray 10/07/21 10:59 XR chest 1V portable HISTORY: 66 years-old Female Dyspnea acute shortness of breath COMPARISON: Chest CT 04/23/2021 TECHNIQUE: Portable AP view of the chest FINDINGS: The cardiac silhouette is enlarged. Right IJ [id number] catheter is noted with distal tip in the location of the mid SVC. Mild right hemidiaphragmatic elevation. Mild linear scarring versus atelectasis of the right midlung. No pneumothorax, pleural effusion, airspace consolidation or overt pulmonary edema. Hyperdense structure in the medial right lung base redemonstrated. Right-sided rotator cuff calcific tendinosis. 1.9 cm calcified structure superior to the l eft clavicle redemonstrated. IMPRESSION: 1. Cardiomegaly without acute process. 2. Unchanged right hemidiaphragmatic elevation with linear right midlung atelectasis/scarring. ACT 112: Negative or not required by law. The above report was generated using voice recognition software. It may contain grammatical, syntax or spelling errors. Electronically signed by: Irineo Chew M.D. 10/07/2021 12:46 PM Abdomen/Pelvis CT 10/07/21 12:11 CT abd pelvis wo con CLINICAL HISTORY: anemia . Dizziness. History of ovarian cancer COMPARISON STUDY: 04/23/2021 CT DOSE: 1118.87 mGycm TECHNIQUE: Standard CT of the Abdomen and Pelvis was performed without IV contrast. The patient did not receive oral contrast. A dose lowering technique was utilized adhering to the principles of ALARA. FINDINGS: Lung base: The lung bases are clear. Calcification is again seen the right middle lobe. Abdominal cavity: There is no evidence for abdominal mass, adenopathy or ascites. There is a recurrent umbilical hernia with bowel loops seen projecting into the hernia sac. There is again a calcified nodule seen within the hernia as well. Additional calcified lymph nodes/masses are again seen within the retroperitoneum, sarbjit hepatis, right pelvic sidewall, right rectus abdominal muscle and left anterior abdominal wall which are again not significantly changed. No definite new masses are identified. Liver: The liver is homogeneous in attenuation on these limited noncontrast images.. Spleen: The spleen is homogeneous in attenuation on these limited noncontrast images. Pancreas: The pancreas is homogeneous in attenuation on these limited noncontrast images. Gall Bladder: Surgical clips are again seen. Adrenal glands: The adrenal glands are normal in size and attenuation on these limited noncontrast images. Kidneys: The kidneys are homogeneous in attenuation on these limited noncontrast images. There is no evidence for gross renal mass, calculus or hydronephrosis bilaterally. Bowel: The bowel loops are normally placed within the abdomen and pelvis without evidence for dilatation or obstruction. There is no evidence for mass lesion. There are no inflammatory changes present. There is no evidence for free air. Bladder: There is distention of the bladder with no evidence for focal bladder wall thickening, calculus or diverticulum. : There is no evidence for pelvic mass or adenopathy. The patient is again status post hysterectomy with no recurrent pelvic mass Vasculature: There is no evidence for focal aneurysmal dilatation of the abdominal aorta. Atherosclerotic calcification is present. Osseous structures: There is no acute osseous pathology. Degenerative changes are seen within the spine. IMPRESSION: 1. Interval recurrence of umbilical hernia with bowel loops extending into the hernia sac. No obstruction or incarceration. 2. No other evidence for acute intra-abdominal or pelvic abnormality on these limited noncontrast images. 3. Calcified lymph nodes/masses are again seen and essentially unchanged with no new metastatic disease identified. ACT 112: Negative or not required by law. Electronically signed by: Joseph Powers M.D. 10/07/2021 1:29 PM ECG Data Attestation: I personally reviewed and interpreted this ECG as follows: Indication: + SOB/dyspnea Rate (beats per minute): 77 Rhythm: + normal sinus ECG Intervals/blocks: + First degree AV block, + Normal QRS and + Normal QT ECG [place]: + Normal ECG ST segments: + Nonspecific ST abnormalities MDM Narrative An order was placed for continuous cardiac monitoring. The monitor shows a rate of _82__ with _normal sinus_ rhythm. This is a 66 yo female who presents from her cardiologists office after reporting several symptoms and having positive orthostatics. VS stable and pt afebrile on arrival here. Patient with known metastatic ovarian cancer receiving chemotherapy. Labs sent and patient placed in a room as soon as possible as patient presented on a day of high volume and acuity. Lab called with initial Hgb 3.8. A repeat was ordered and social work case manager able to obtain recent outpatient H/H for comparison. Prior H/H over the last several months were low and declining, however not low enough to warrant transfusion. Patient updated on results and signed blood consent form. Transfusion started while in the ER, 2 units ordered initially. CXR reassuring. CT a/p also performed as a precaution given significant decrease in Hgb and use of anticoagulation, no evidence of intraabdominal or retroperitoneal bleeding. Patient denied noting any bleeding from any source. CAse discussed with hospitalist for addition evaluation and treatment. Impression & Plan RENTERIA (dyspnea on exertion), Ovarian cancer, Thrombocytopenia, Anemia, Generalized weakness Discharge Plan Visit Data Chief Complaint: Shortness of Breath/Dyspnea Stated Complaint: SOB, CRACKLING IN LUNGS, HYPERTENSION ED Provider: Jolene Roca ED Midlevel Provider: Mikael Moran Discharge Problem: RENTERIA (dyspnea on exertion), Ovarian cancer, Thrombocytopenia, Anemia, Generalized weakness Patient Disposition: Admitted As Inpatient Discharge Instructions Interventions: ED Discharge Assessment Last Done: 10/07/21 16:48 Discharge Problem: Ovarian cancer Qualifiers: Laterality: unspecified laterality Qualified Code(s): C56.9 - Malignant neoplasm of unspecified ovary Anemia Qualifiers: Anemia type: unspecified type Qualified Code(s): D64.9 - Anemia, unspecified
[2021-10-07 11:36] LABS: Base Excess VBG 0.8 mEq/L; HCO3 VBG 25 mmol/L; Oxygen Saturation VBG < 60.0 %; PCO2 VBG 39 mmHg (38-50); PO2 VBG 29 mmHg; pH VBG 7.42 (7.36-7.41)
[2021-10-07 11:45] LABS: Hematocrit (blood only) 12.2 % (34.1-44.9); Hemoglobin 3.8 g/dl (12.0-16.0); Mean Corpuscular Hemoglobin 35.5 pg (25.0-34.0); Mean Corpuscular Hgb Conc 31.1 g/dL (32.0-36.0); Mean Platelet Volume 11.5 fL (9.4-12.3); Nucleated RBC # (auto) 0.03 K/uL (0-0); Nucleated RBC % (auto) 0.5 %; Platelet Count 42 K/uL (130-400); RDW Standard Deviation 93.5 fL (36.4-46.3); Red Blood Count 1.07 M/uL (3.93-5.22); White Blood Count 6.29 K/ul (4.8-10.8)
[2021-10-07 11:57] LABS: Anisocytosis Present; Basophils # (auto) 0.01 K/uL (0-0.2); Basophils % (auto) 0.2 %; Eosinophils # (auto) 0.02 K/uL (0-0.50); Eosinophils % (auto) 0.3 %; Immature Granulocytes # (auto) 0.04 K/uL (0.00-0.02); Immature Granulocytes % (auto) 0.6 %; Lymphocytes # (auto) 0.87 K/uL (1.2-3.4); Lymphocytes % (auto) 13.8 %; Macrocytosis Present; Monocytes # (auto) 0.89 K/uL (0.24-0.82); Monocytes % (auto) 14.1 %; Neutrophils # (auto) 4.46 K/uL (1.4-6.5)
[2021-10-07 12:05] LABS: Appearance Urine Clear (Clear); Bacteria Urine Automated 2+ (Negative); Bilirubin Urine Negative (Negative); Blood Urine Negative (Negative); Cast Urine Automated 0 /lpf (0-5); Color Urine Yellow; Glucose Urine UA Negative (Negative); Ketones Urine Negative (Negative); Leukocyte Esterase Urine Trace (Negative); Nitrite Urine Negative (Negative); Protein Urine Negative (Negative); RBC Urine Automated 0-4 /hpf (0-4); Urobilinogen Urine Negative (Negative); pH Urine 6.5 (4.5-7.5)
[2021-10-07] MEDS ORDERED: SODIUM CHLORIDE 0.9% 250 ML IV PRN (12:11)
[2021-10-07 12:40] LABS: INR 1.2 (0.9-1.1); Partial Thromboplastin Ratio 2.6; Prothrombin Time 12.2 Seconds (9.0-12.0)
[2021-10-07 12:45] LABS: Partial Thromboplastin Time 71.8 Seconds (21.0-31.0)
--- NOTE | 2021-10-07 12:47 | XRay Report ---
XR chest 1V portable HISTORY: 66 years-old Female Dyspnea acute shortness of breath COMPARISON: Chest CT 04/23/2021 TECHNIQUE: Portable AP view of the chest FINDINGS: The cardiac silhouette is enlarged. Right IJ [id number] catheter is noted with distal tip in the l ocation of the mid SVC. Mild right hemidiaphragmatic elevation. Mild linear scarring versus atelectas is of the right midlung. No pneumothorax, pleural effusion, airspace consolidation or overt pulmonary edema. Hyperdense structure in the medial right lung base redemonstrated. Right-sided rotator cuff c alcific tendinosis. 1.9 cm calcified structure superior to the left clavicle redemonstrated. IMPRESSION: 1. Cardiomegaly without acute process. 2. Unchanged right hemidiaphragmatic elevation with linear right midlung atelectasis/scarring. ACT 112: Negative or not required by law. The above report was generated using voice recognition software. It may contain grammatical, syntax o r spelling errors. Electronically signed by: Irineo Chew M.D. 10/07/2021 12:46 PM
--- NOTE | 2021-10-07 13:30 | CT Scan Report ---
CT abd pelvis wo con CLINICAL HISTORY: anemia . Dizziness. History of ovarian cancer COMPARISON STUDY: 04/23/2021 CT DOSE: 1118.87 mGycm TECHNIQUE: Standard CT of the Abdomen and Pelvis was performed without IV contrast. The patient did not receive oral contrast. A dose lowering technique was utilized adhering to the principles of KALEB Davis. FINDINGS: Lung base: The lung bases are clear. Calcification is again seen the right middle lobe. Abdominal cavity: There is no evidence for abdominal mass, adenopathy or ascites. There is a recurren t umbilical hernia with bowel loops seen projecting into the hernia sac. There is again a calcified n odule seen within the hernia as well. Additional calcified lymph nodes/masses are again seen within the retroperitoneum, sarbjit hepatis, rig ht pelvic sidewall, right rectus abdominal muscle and left anterior abdominal wall which are again no t significantly changed. No definite new masses are identified. Liver: The liver is homogeneous in attenuation on these limited noncontrast images.. Spleen: The spleen is homogeneous in attenuation on these limited noncontrast images. Pancreas: The pancreas is homogeneous in attenuation on these limited noncontrast images. Gall Bladder: Surgical clips are again seen. Adrenal glands: The adrenal glands are normal in size and attenuation on these limited noncontrast im ages. Kidneys: The kidneys are homogeneous in attenuation on these limited noncontrast images. There is no evidence for gross renal mass, calculus or hydronephrosis bilaterally. Bowel: The bowel loops are normally placed within the abdomen and pelvis without evidence for dilatat ion or obstruction. There is no evidence for mass lesion. There are no inflammatory changes present. There is no evidence for free air. Bladder: There is distention of the bladder with no evidence for focal bladder wall thickening, calcu jessy or diverticulum. : There is no evidence for pelvic mass or adenopathy. The patient is again status post hysterectomy with no recurrent pelvic mass Vasculature: There is no evidence for focal aneurysmal dilatation of the abdominal aorta. Atheroscler otic calcification is present. Osseous structures: There is no acute osseous pathology. Degenerative changes are seen within the spi ne. IMPRESSION: 1. Interval recurrence of umbilical hernia with bowel loops extending into the hernia sac. No obstruc tion or incarceration. 2. No other evidence for acute intra-abdominal or pelvic abnormality on these limited noncontrast juana ges. 3. Calcified lymph nodes/masses are again seen and essentially unchanged with no new metastatic disea se identified. ACT 112: Negative or not required by law. Electronically signed by: Joseph Powers M.D. 10/07/2021 1:29 PM
--- NOTE | 2021-10-07 14:21 | History & Physical Report ---
Date of Service October 07, 2021 Assessment & Plan (1) Macrocytic anemia: Plan: SEVERE, with presenting Hb of 4. Dr Roca, ER attending, obtained old records and her hemoglobin was 7.9 on September 14, 2021. To the patient's knowledge she has never been told she had nutritional deficiencies. She has not required pRBC support in several years even in the face of her advanced ovarian cancer. Her dizziness, dyspnea, etc are all likely due to the severe anemia. B12/folate/TSH levels are all wnl. Fe studies show low ferritin in the mid 20s. She has not had overt melena or BRBPR. [id number] she is at risk of occult GI bleeding because of her Eliquis use. Perhaps her chemotherapy is contributing to the macrocytosis. She could also have other micronutrient deficiencies (copper, etc) although these are rare. Plan - * hold eliquis * Tx 2 units PRBCs with post-Tx CBC * if Hb still <7 then transfuse a 3rd unit, and follow such with IV lasix 20mg x 1 * add PPI if she is having any upper occult GI bleeding * GI consultation in am for consideration of EGD if fecal occult is positive * consider hemolysis w/u (LDH, haptoglobin, etc) although the normal t.bili makes hemolysis less likely * no schistocytes were reported on the CBC; thus, despite the presence of her thrombocytopenia, TTP highly unlikely * will ask Dr Rose to see in am for any other recommendations * will also provide 1 dose of IV venofer tomorrow AM (300mg x 1) due to ferritin in the 20s (2) Dizziness: Plan: 2nd to severe anemia with resulting orthostasis. Orthostasis/dizziness should improve promptly with blood transfusion. Hold metoprolol. Reasonable to continue low-dose diltiazem for now. (3) Thrombocytopenia: Plan: Severe. B12/folate wnl. No evidence of TTP based on CBC and other labs (stable renal function, no schistocytes, mental status wnl, etc). I assume this is 2nd to her chemotherapy (cisplatin) that was given within the last 2-3 weeks. HOLD Eliquis due to high risk of bleeding. Repeat CBC tonight and again in am. (4) Ovarian cancer: Plan: stage 4. initial dx 2016. follows with Dr Mcgovern in [place]. See HPI for further details. CT abd/pelvis with stable findings per radiology. (5) Hypertension: Plan: HOLD metoprolol. Can cont low-dose diltiazem for her a.fib. (6) History of hysterectomy with bilateral oophorectomy: Plan: 2nd ovarian ca. (7) UTI (urinary tract infection): Plan: patient reports urinary frequency. 2+ bacteria on urine micro. send culture. start keflex 500mg BID for simple, uncomplicated UTI. (8) Prolonged QT interval: Plan: 2nd to flecainide? check mag level in am. K wnl. place on telemetry. (9) Supraclavicular lymphadenopathy: Plan: left. 2nd ovarian cancer. per patient the node has gotten smaller within the last few months with chemo. (10) PAF (paroxysmal atrial fibrillation): Plan: in NSR at time of admission. follows with Dr Lizarraga. remains on CCB, BB, and flecainide with Eliquis for anticoagulation. HOLD ELIQUIS given severe anemia with severe thrombocytopenia and heightened bleeding risk. (11) Hypothyroidism: Plan: TSH wnl cont synthroid (12) Diabetes mellitus, type 2: Plan: hold metformin hold glyburide novolog SSI BSGs q6h History of Present Illness Chief Complaint: dizziness Primary Care Provider: Stacia Rajput DO 66yo female with history of a.fib - followed by Dr Deacon Lizarraga [facility] cardiology - presents from that office due to severe orthostasis. For the last few days she has felt very dizzy and lightheaded with standing/activity. No syncope but has had near-syncope. Walking has been very difficulty because of the dizziness. No vertigo. Symptoms started last . Denies seeing any melena or BRBPR. No h/o GI bleeding in the past. Due to the persistent dizziness she was concerned that perhaps it was her a.fib causing the symptoms. Thus, she called to schedule a visit with Dr Lizarraga and did see him in the office today. While at that visit she had severe orthostatic hypotension on orthostatic checks. EKG showed NSR. She was referred to the ER for evaluation. In addition to the above she has felt short of breath for some time (months or longer) but it got significantly worse in the last few days. Last chemotherapy was about 1 month ago (Avastin/cisplatin to her recollection). Cycles are q4 weeks. Current chemotherapy is under the direction of Dr Connor Mcgovern, oncologist in [place]. Last office visit with him was also about 1 month ago. Ovarian cancer - initial dx May 2015. She was initially treated at [facility]. She had cancer recurrence and treatment resumed about [address] Mcgovern's guidance. She has not required blood transfusion in the last year. No nutritional deficiencies have been noted by her primary oncologist/pattern maker. Also sees Dr Irineo Burgos at [facility] (gyne onc). Allergies Allergy/AdvReac Type Severity Reaction Status Date / Time codeine Allergy Unknown itchy, Verified 10/07/21 16:20 nausea lisinopril Allergy Unknown Cough Verified 10/07/21 16:20 prochlorperazine AdvReac Mild Nausea Verified 10/07/21 16:20 [From Compazine] Sulfa (Sulfonamide AdvReac Mild Stomach Verified 10/07/21 16:20 Antibiotics) upset azithromycin AdvReac Nausea Verified 10/07/21 16:20 CONTRAST MEDIA AdvReac Mild RASH, Uncoded 10/07/21 16:20 TINGLING IN HANDS Home Medications Medication Instructions Recorded Confirmed Type multivitamin 1 tab PO DAILY #0 11/11/09 10/07/21 History magnesium oxide 400 mg PO DAILY #0 tab 07/18/12 10/07/21 History montelukast 10 mg tablet 10 mg PO HS #0 tab 07/18/12 10/07/21 History (Singulair) apixaban 5 mg tablet (Eliquis) 5 mg PO BID #0 08/11/15 10/07/21 History cetirizine 10 mg tablet 10 mg PO DAILY #0 tab 08/11/15 10/07/21 History clonazepam 1 mg tablet 1 mg PO HS #0 08/11/15 10/07/21 History flecainide 100 mg tablet 100 mg PO QPM #0 tab 08/11/15 10/07/21 History glyburide 5 mg tablet 5 mg PO DAILY #0 08/11/15 10/07/21 History metformin 750 mg tablet,extended 750 mg PO BID #0 08/11/15 10/07/21 History release 24 hr metoprolol succinate 50 mg 50 mg PO HS #30 tab 08/11/15 10/07/21 History tablet,extended release 24 hr rosuvastatin 20 mg tablet (Crestor) 20 mg PO DAILY 30 Days #30 tab 08/11/15 10/07/21 History lorazepam 0.5 mg tablet 0.5 mg PO DAILY PRN #0 tab 08/18/15 10/07/21 History diltiazem HCl 30 mg tablet 30 mg PO BID 04/19/19 10/07/21 History (Cardizem) docusate sodium 100 mg tablet 200 mg PO HS 04/19/19 10/07/21 History (Stool Softener) fluoxetine 40 mg capsule (Prozac) 40 mg PO QAM 04/19/19 10/07/21 History trazodone 50 mg tablet 75 mg PO HS PRN 04/19/19 10/07/21 History flecainide 50 mg tablet 50 mg PO DAILY 10/07/21 10/07/21 History zolpidem 5 mg tablet (Ambien) 5 mg PO HS PRN 10/07/21 10/07/21 History Past Med/Surg History Medical History (Updated 10/08/21 @ 00:41 by Latrell Valadez) Anxiety Atrial fibrillation Cancer ovarian Depression Diabetes mellitus, type 2 GERD (gastroesophageal reflux disease) Hypothyroidism Osteoarthritis Peripheral neuropathy Supraclavicular lymphadenopathy Surgical History (Updated 10/07/21 @ 14:45 by Latrell Valadez) H/O colonoscopy History of cardiac cath History of cholecystectomy History of hysterectomy History of hysterectomy with bilateral oophorectomy History of nasal septoplasty History of tonsillectomy History of vascular access device Family History (Updated 10/07/21 @ 14:38 by Latrell Valadez) Mother , age 86 COPD (chronic obstructive pulmonary disease) Father Lung cancer Social History (Updated 10/08/21 @ 00:18 by Latrell Valadez) Smoking Status: Former smoker Tobacco Type: Cigarettes packs per day: 0.25; Years Smoked: 40; Second Hand Exposure: No; Hx Alcohol Use: No Hx Substance Use: No Preferred Language: Yemeni Communication Ability: Effective Order Packer Or Packager Required: No Beliefs That Will Affect Care: None marital status: Current Living Situation: Spouse current occupational status: employed current occupation: works at [employer] How many Children do You have: 0 Feels Safe at Home: Yes Assistive Devices: Glasses Review of Systems Review of Systems: gen - no fevers or chills; appetite poor - chronic; lost 60 pounds in 2020, then gained some back after fall 2020 eyes - last few days she sees "spots" with standing HENT - no dysphagia; chronic nasal drainage, sore throats cv - no chest pains pulm - chronic dyspnea, chronic cough, no sputum GI - no melena; no BRBPR; chronic nausea due to chemo; no abd pain - no dysuria; no hematuria musculo - no myalgias skin - no rash endo - BSGs - doesn't check neuro - no headaches chronically; occasional numbness legs; dizziness x 1 week psych - depression from her cancer Physical Exam Physical Exam: gen - NAD, very pleasant, awake/alert skin - severe pallor; no rash; dermatofibromas vs other type of scars on anterior shins chest - port R upper chest clean eyes - PERRL HENT - MMM, no lesions neck - no JVD heart - RRR, s1 s2, 2/6 DAVE LSB lungs - CTA b/l abd - soft, minimally distended, BS+, NT, no HSM ext - <1+ edema b/l, pulses 2+ b/l LIAM - deferred neuro - strength 5/5 x 4 exts; mild resting tremor; DTRs slightly brisk but symmetric b/l upper & lower extremities psych - a/o x 3 lymph - supraclavicular node present on left, about 1.5cm in size Results & Data Results & Data ([facility]) Vital Signs (Past 12 Hours) Vital Signs Temp Pulse Resp BP Pulse Ox 10/07/21 14:00 65 23 127/63 96 10/07/21 13:00 63 24 130/70 94 10/07/21 12:30 65 28 H 136/55 L 96 10/07/21 12:01 66 22 112/39 L 97 10/07/21 11:42 82 20 112/85 98 10/07/21 11:00 67 19 125/70 96 10/07/21 10:59 97 10/07/21 09:57 36.4 C L 76 20 108/50 L 97 Laboratory Results Laboratory Results - last 24 hr 07/06/22 07/06/22 07/06/22 10:34 10:34 10:34 WBC 6.29 RBC 1.07 L Hgb 3.8 L* Hct 12.2 L* MCV 114.0 H MCH 35.5 H MCHC 31.1 L RDW Std Deviation 93.5 H RDW Coeff of Teddy 23.0 H Plt Count 42 L MPV 11.5 Immature Gran % (Auto) 0.6 Neut % (Auto) 71.0 Lymph % (Auto) 13.8 [place] % (Auto) 14.1 Eos % (Auto) 0.3 Baso % (Auto) 0.2 Neut # (Auto) 4.46 Lymph # (Auto) 0.87 L [place] # (Auto) 0.89 H Eos # (Auto) 0.02 Baso # (Auto) 0.01 Immature Gran # (Auto) 0.04 H Absolute Nucleated RBC 0.03 H Nucleated RBC % (auto) 0.5 Anisocytosis Present Macrocytosis Present PT 12.2 H INR 1.2 H APTT 71.8 H* PTT Ratio 2.6 VBG pH VBG pCO2 VBG pO2 VBG HCO3 VBG O2 Saturation VBG Base Excess Sodium 136 Potassium 4.5 Chloride 103 Carbon Dioxide 23 Anion Gap 10 BUN 31 H Creatinine 1.35 H Est Cr Clr Drug Dosing 46.8 Est GFR ( Amer) 47.6 Est GFR (Non-Af Amer) 41.1 BUN/Creatinine Ratio 23.0 H Glucose 188 H POC Glucose Calcium 8.4 L Iron TIBC Unsaturated IBC Transferrin % Sat Ferritin Total Bilirubin 0.7 AST 15 ALT 10 Alkaline Phosphatase 54 Troponin I High Sens 7.1 Total Protein 6.0 Albumin 3.5 Globulin 2.5 Albumin/Globulin Ratio 1.4 Vitamin B12 Folate TSH Urine Color Urine Appearance Urine pH Ur Specific [place] Urine Protein Urine Glucose (UA) Urine Ketones Urine Blood Urine Nitrite Urine Bilirubin Urine Urobilinogen Ur Leukocyte Esterase Urine WBC (Auto) Urine RBC (Auto) U Hyaline Cast (Auto) U Epithel Cells (Auto) Urine Bacteria (Auto) SARS-CoV-2 (PCR) SARS-CoV-2 RNA (ARIA) Blood Type Antibody Screen Antibody Identification Antibody ID Comment Antigen Identification Crossmatch 10/07/21 10/07/21 10/07/21 10:34 10:34 10:34 WBC RBC Hgb Hct MCV MCH MCHC RDW Std Deviation RDW Coeff of Teddy Plt Count MPV Immature Gran % (Auto) Neut % (Auto) Lymph % (Auto) [place] % (Auto) Eos % (Auto) Baso % (Auto) Neut # (Auto) Lymph # (Auto) [place] # (Auto) Eos # (Auto) Baso # (Auto) Immature Gran # (Auto) Absolute Nucleated RBC Nucleated RBC % (auto) Anisocytosis Macrocytosis PT INR APTT PTT Ratio VBG pH VBG pCO2 VBG pO2 VBG HCO3 VBG O2 Saturation VBG Base Excess Sodium Potassium Chloride Carbon Dioxide Anion Gap BUN Creatinine Est Cr Clr Drug Dosing Est GFR ( Amer) Est GFR (Non-Af Amer) BUN/Creatinine Ratio Glucose POC Glucose Calcium Iron 111 TIBC 460 H Unsaturated IBC 349 Transferrin % Sat 24 Ferritin 26.3 Total Bilirubin AST ALT Alkaline Phosphatase Troponin I High Sens Total Protein Albumin Globulin Albumin/Globulin Ratio Vitamin B12 > 1500 H Folate > 22.30 TSH 3.682 Urine Color Urine Appearance Urine pH Ur Specific [place] Urine Protein Urine Glucose (UA) Urine Ketones Urine Blood Urine Nitrite Urine Bilirubin Urine Urobilinogen Ur Leukocyte Esterase Urine WBC (Auto) Urine RBC (Auto) U Hyaline Cast (Auto) U Epithel Cells (Auto) Urine Bacteria (Auto) SARS-CoV-2 (PCR) SARS-CoV-2 RNA (ARIA) Blood Type Antibody Screen Antibody Identification Antibody ID Comment Antigen Identification Crossmatch 10/07/21 10/07/21 10/07/21 11:25 11:25 11:25 WBC RBC Hgb 4.0 L* Hct 13.0 L* MCV MCH MCHC RDW Std Deviation RDW Coeff of Teddy Plt Count MPV Immature Gran % (Auto) Neut % (Auto) Lymph % (Auto) [place] % (Auto) Eos % (Auto) Baso % (Auto) Neut # (Auto) Lymph # (Auto) [place] # (Auto) Eos # (Auto) Baso # (Auto) Immature Gran # (Auto) Absolute Nucleated RBC Nucleated RBC % (auto) Anisocytosis Macrocytosis PT INR APTT PTT Ratio VBG pH 7.42 H VBG pCO2 39 VBG pO2 29 VBG HCO3 25 VBG O2 Saturation < 60.0 VBG Base Excess 0.8 Sodium Potassium Chloride Carbon Dioxide Anion Gap BUN Creatinine Est Cr Clr Drug Dosing Est GFR ( Amer) Est GFR (Non-Af Amer) BUN/Creatinine Ratio Glucose POC Glucose Calcium Iron TIBC Unsaturated IBC Transferrin % Sat Ferritin Total Bilirubin AST ALT Alkaline Phosphatase Troponin I High Sens Total Protein Albumin Globulin Albumin/Globulin Ratio Vitamin B12 Folate TSH Urine Color Urine Appearance Urine pH Ur Specific [place] Urine Protein Urine Glucose (UA) Urine Ketones Urine Blood Urine Nitrite Urine Bilirubin Urine Urobilinogen Ur Leukocyte Esterase Urine WBC (Auto) Urine RBC (Auto) U Hyaline Cast (Auto) U Epithel Cells (Auto) Urine Bacteria (Auto) SARS-CoV-2 (PCR) SARS-CoV-2 RNA (ARIA) Blood Type O Positive Antibody Screen POSITIVE A Antibody Identification Anti-K Antibody ID Comment Antigen Identification K Antigen - NEGATIVE Crossmatch See Detail 10/07/21 10/07/21 10/07/21 11:25 11:25 11:40 WBC RBC Hgb Hct MCV MCH MCHC RDW Std Deviation RDW Coeff of Teddy Plt Count MPV Immature Gran % (Auto) Neut % (Auto) Lymph % (Auto) [place] % (Auto) Eos % (Auto) Baso % (Auto) Neut # (Auto) Lymph # (Auto) [place] # (Auto) Eos # (Auto) Baso # (Auto) Immature Gran # (Auto) Absolute Nucleated RBC Nucleated RBC % (auto) Anisocytosis Macrocytosis PT INR APTT PTT Ratio VBG pH VBG pCO2 VBG pO2 VBG HCO3 VBG O2 Saturation VBG Base Excess Sodium Potassium Chloride Carbon Dioxide Anion Gap BUN Creatinine Est Cr Clr Drug Dosing Est GFR ( Amer) Est GFR (Non-Af Amer) BUN/Creatinine Ratio Glucose POC Glucose Calcium Iron TIBC Unsaturated IBC Transferrin % Sat Ferritin Total Bilirubin AST ALT Alkaline Phosphatase Troponin I High Sens Total Protein Albumin Globulin Albumin/Globulin Ratio Vitamin B12 Folate TSH Urine Color Yellow Urine Appearance Clear Urine pH 6.5 Ur Specific [place] 1.010 Urine Protein Negative Urine Glucose (UA) Negative Urine Ketones Negative Urine Blood Negative Urine Nitrite Negative Urine Bilirubin Negative Urine Urobilinogen Negative Ur Leukocyte Esterase Trace H Urine WBC (Auto) 1-5 Urine RBC (Auto) 0-4 U Hyaline Cast (Auto) 0 U Epithel Cells (Auto) 10-20 H Urine Bacteria (Auto) 2+ H SARS-CoV-2 (PCR) NEGATIVE SARS-CoV-2 RNA (ARIA) Cancelled Blood Type Antibody Screen Antibody Identification Antibody ID Comment Antigen Identification Crossmatch Diagnostic Findings Chest X-Ray 10/07/21 10:59 XR chest 1V portable HISTORY: 66 years-old Female Dyspnea acute shortness of breath COMPARISON: Chest CT 04/23/2021 TECHNIQUE: Portable AP view of the chest FINDINGS: The cardiac silhouette is enlarged. Right IJ [id number] catheter is noted with distal tip in the location of the mid SVC. Mild right hemidiaphragmatic elevation. Mild linear scarring versus atelectasis of the right midlung. No pneumothorax, pleural effusion, airspace consolidation or overt pulmonary edema. Hyperdense structure in the medial right lung base redemonstrated. Right-sided rotator cuff calcific tendinosis. 1.9 cm calcified structure superior to the left clavicle redemonstrated. IMPRESSION: 1. Cardiomegaly without acute process. 2. Unchanged right hemidiaphragmatic elevation with linear right midlung atelectasis/scarring. ACT 112: Negative or not required by law. The above report was generated using voice recognition software. It may contain grammatical, syntax or spelling errors. Electronically signed by: Irineo Chew M.D. 10/07/2021 12:46 PM Abdomen/Pelvis CT 10/07/21 12:11 CT abd pelvis wo con CLINICAL HISTORY: anemia . Dizziness. History of ovarian cancer COMPARISON STUDY: 04/23/2021 CT DOSE: 1118.87 mGycm TECHNIQUE: Standard CT of the Abdomen and Pelvis was performed without IV contrast. The patient did not receive oral contrast. A dose lowering technique was utilized adhering to the principles of ALARA. FINDINGS: Lung base: The lung bases are clear. Calcification is again seen the right middle lobe. Abdominal cavity: There is no evidence for abdominal mass, adenopathy or ascites. There is a recurrent umbilical hernia with bowel loops seen projecting into the hernia sac. There is again a calcified nodule seen within the hernia as well. Additional calcified lymph nodes/masses are again seen within the retroperitoneum, sarbjit hepatis, right pelvic sidewall, right rectus abdominal muscle and left anterior abdominal wall which are again not significantly changed. No definite new masses are identified. Liver: The liver is homogeneous in attenuation on these limited noncontrast images.. Spleen: The spleen is homogeneous in attenuation on these limited noncontrast images. Pancreas: The pancreas is homogeneous in attenuation on these limited noncontrast images. Gall Bladder: Surgical clips are again seen. Adrenal glands: The adrenal glands are normal in size and attenuation on these limited noncontrast images. Kidneys: The kidneys are homogeneous in attenuation on these limited noncontrast images. There is no evidence for gross renal mass, calculus or hydronephrosis bilaterally. Bowel: The bowel loops are normally placed within the abdomen and pelvis without evidence for dilatation or obstruction. There is no evidence for mass lesion. There are no inflammatory changes present. There is no evidence for free air. Bladder: There is distention of the bladder with no evidence for focal bladder wall thickening, calculus or diverticulum. : There is no evidence for pelvic mass or adenopathy. The patient is again status post hysterectomy with no recurrent pelvic mass Vasculature: There is no evidence for focal aneurysmal dilatation of the abdominal aorta. Atherosclerotic calcification is present. Osseous structures: There is no acute osseous pathology. Degenerative changes are seen within the spine. IMPRESSION: 1. Interval recurrence of umbilical hernia with bowel loops extending into the hernia sac. No obstruction or incarceration. 2. No other evidence for acute intra-abdominal or pelvic abnormality on these limited noncontrast images. 3. Calcified lymph nodes/masses are again seen and essentially unchanged with no new metastatic disease identified. ACT 112: Negative or not required by law. Electronically signed by: Joseph Powers M.D. 10/07/2021 1:29 PM EKG - my reading - NSR, first degree AV block, QTc mildly prolonged; ST segment flattening in V3-V6 Code Status & VTE Plan Code Status full code PG Care Time/CCT Total # of Minutes Spent Total Time Spent with Patient: Total time spent is greater than 50% in coordination of care (as documented) at patient's floor/unit and/or counseling patient: Coding Level of Care Code 24123 Initial Inpt Care Lvl 3 Diagnoses Macrocytic anemia D53.9 Dizziness R42 Thrombocytopenia D69.6 Ovarian cancer C56.9 Hypertension I10 History of hysterectomy with bilateral oophorectomy Z90.710; Z90.722 UTI (urinary tract infection) N39.0 Prolonged QT interval R94.31 Supraclavicular lymphadenopathy R59.0 PAF (paroxysmal atrial fibrillation) I48.0 Hypothyroidism E03.9 Diabetes mellitus, type 2 E11.9
[2021-10-07] MEDS ORDERED: cephALEXin 500 MG CAP PO STA (15:18)
[2021-10-07 15:35] LABS: Ferritin 26.3 ng/ml (8-388)
[2021-10-07 15:36] LABS: Folate (Folic Acid) > 22.30 ng/ml (>5.38)
[2021-10-07 15:37] LABS: Vitamin B12 > 1500 pg/ml (180-914)
[2021-10-07] MEDS ORDERED: ONDANSETRON INJ 2 MG/ML 2 ML VIAL IV STA (15:49)
[2021-10-07] MEDS ORDERED: ACETAMINOPHEN 325 MG TAB PO PRN (17:41)
[2021-10-07] MEDS ORDERED: traZODone HCL 50 MG TAB PO PRN (17:41)
[2021-10-07] MEDS: INSULIN ASPART PER UNIT SC SCH ×2 (18:26→20:24)
[2021-10-07] MEDS ORDERED: SIMETHICONE 80 MG CHEW PO PRN (19:48)
[2021-10-07] MEDS: FLECAINIDE ACETATE 100 MG TABLET PO SCH (20:25)
[2021-10-07] MEDS: cephALEXin 500 MG CAP PO SCH (20:25)
[2021-10-07] MEDS: GABAPENTIN 300 MG CAP PO SCH ×2 (20:25→20:31)
[2021-10-07] MEDS: dilTIAZem HCL 30 MG TAB PO SCH (20:26)
[2021-10-07] MEDS ORDERED: DOCUSATE SODIUM/SENNA 50/8.6MG TAB PO SCH (21:00)
[2021-10-07] MEDS ORDERED: METOPROLOL SUCC 50MG EXT REL TAB PO SCH (21:00)
[2021-10-07] MEDS ORDERED: MONTELUKAST SODIUM 10 MG TABLET PO SCH (21:00)
[2021-10-07] MEDS ORDERED: dilTIAZem HCL 30 MG TAB PO SCH (21:00)
[2021-10-07] MEDS ORDERED: clonazePAM 1 MG TAB PO SCH (21:00)
--- NOTE | 2021-10-07 23:00 | Electrocardiogram Report ---
Test Reason : Blood Pressure : / mmHG Vent. Rate : 077 BPM Atrial Rate : 077 BPM P-R Int : 220 ms QRS Dur : 090 ms QT Int : 438 ms P-R-T Axes : 089 076 095 degrees QTc Int : 495 ms Sinus rhythm with 1st degree A-V block Nonspecific T wave abnormality Prolonged QT Abnormal ECG When compared with ECG of 16-MAY-2015 08:52, OR interval has increased Nonspecific T wave abnormality now evident in Anterolateral leads Confirmed by Paulino Luther ([id number]) on 10/07/2021 11:00:27 PM Referred By: REFERRED SELF Confirmed By:Paulino Luther
[2021-10-08 00:04] LABS: Hematocrit (blood only) 20.2 % (34.1-44.9); Hemoglobin 6.5 g/dl (12.0-16.0); Mean Corpuscular Hemoglobin 31.7 pg (25.0-34.0); Mean Corpuscular Hgb Conc 32.2 g/dL (32.0-36.0); Mean Corpuscular Volume 98.5 fL (80.0-100.0); Mean Platelet Volume 11.9 fL (9.4-12.3); Nucleated RBC # (auto) 0.03 K/uL (0-0); Nucleated RBC % (auto) 0.5 %; Platelet Count 38 K/uL (130-400); RDW Coefficient of Variation 23.3 % (11.5-14.5); RDW Standard Deviation 72.3 fL (36.4-46.3); Red Blood Count 2.05 M/uL (3.93-5.22); White Blood Count 6.32 K/ul (4.8-10.8)
[2021-10-08] MEDS ORDERED: SODIUM CHLORIDE 0.9% 250 ML IV PRN ×2 (00:11→00:13)
[2021-10-08] MEDS ORDERED: FUROSEMIDE INJ 20 MG/2 ML VIAL IV ONE (00:13)
--- NOTE | 2021-10-08 00:14 | Communication Note ---
Date of Service: October 08, 2021 Hb 6.5 s/p 2u prbc. Ordering 1u prbc, transfuse now.
[2021-10-08 00:23] LABS: Platelet Estimate Decreased (Normal)
[2021-10-08] MEDS ORDERED: HEPARIN 100 UNIT/ML 5ML FLUSH FLUSH PRN (06:25)
[2021-10-08] MEDS ORDERED: LEVOTHYROXINE SODIUM 50 MCG TABLET PO SCH (06:30)
[2021-10-08 07:01] LABS: Hematocrit (blood only) 25.4 % (34.1-44.9); Hemoglobin 8.2 g/dl (12.0-16.0); Mean Corpuscular Hemoglobin 31.7 pg (25.0-34.0); Mean Corpuscular Hgb Conc 32.3 g/dL (32.0-36.0); Mean Corpuscular Volume 98.1 fL (80.0-100.0); Mean Platelet Volume 11.5 fL (9.4-12.3); Nucleated RBC # (auto) 0.03 K/uL (0-0); Nucleated RBC % (auto) 0.5 %; Platelet Count 38 K/uL (130-400); RDW Coefficient of Variation 21.6 % (11.5-14.5); RDW Standard Deviation 63.5 fL (36.4-46.3); Red Blood Count 2.59 M/uL (3.93-5.22); Reticulocyte % 4.5 % (0.5-2.0); Reticulocytes # 0.12 10^6/uL (0.02-0.10); White Blood Count 6.36 K/ul (4.8-10.8)
[2021-10-08 07:06] LABS: BUN Creatinine Ratio 25.4 (10-20); Calcium 8.2 mg/dl (8.5-10.1); Creatinine Clr Calc Pharmacy 53.6 ml/min; Est GFR (Non-African American) 48.4 ml/min; Magnesium 1.1 mg/dl (1.7-2.4); Potassium 4.2 mmol/L (3.5-5.1)
[2021-10-08] MEDS: cephALEXin 500 MG CAP PO SCH (07:50)
[2021-10-08] MEDS: FLECAINIDE ACETATE 100 MG TABLET PO SCH (07:50)
[2021-10-08] MEDS: dilTIAZem HCL 30 MG TAB PO SCH (07:50)
[2021-10-08] MEDS: ONDANSETRON INJ 2 MG/ML 2 ML VIAL IV PRN ×2 (07:54→15:33)
[2021-10-08] MEDS: INSULIN ASPART PER UNIT SC SCH ×3 (08:03→17:05)
[2021-10-08] MEDS ORDERED: IRON SUCROSE 300 MG in SODIUM CHLORIDE 0.9% 250 ML IV ONE (09:00)
[2021-10-08] MEDS ORDERED: clonazePAM 1 MG TAB PO SCH (09:00)
[2021-10-08] MEDS ORDERED: MULTIVITAMIN TAB PO SCH (09:00)
[2021-10-08] MEDS ORDERED: MAGNESIUM OXIDE 400 MG TAB PO SCH (09:00)
[2021-10-08] MEDS ORDERED: PANTOprazole 40 MG TAB PO SCH (09:00)
[2021-10-08] MEDS ORDERED: CETIRIZINE HCL 10 MG TABLET PO SCH (09:00)
[2021-10-08] MEDS ORDERED: METOPROLOL SUCC 50MG EXT REL TAB PO SCH ×2 (09:00)
[2021-10-08] MEDS ORDERED: ROSUVASTATIN CALCIUM 20 MG TAB PO SCH (09:00)
[2021-10-08] MEDS ORDERED: FLUoxetine HCL 20 MG CAP PO SCH (09:00)
[2021-10-08] MEDS ORDERED: MONTELUKAST SODIUM 10 MG TABLET PO SCH (09:00)
--- NOTE | 2021-10-08 09:08 | Gastrointestinal Consultation ---
Date of Consultation October 08, 2021 Assessment & Plan (1) Severe anemia: (2) Ovarian cancer: This is a 66 y/o female with h/o ovarian CA, s/p surgery, last chemo was last month, admitted w/ severe symptomatic anemia w/o GIB for which we are consulted. HGB 4 on arrival, responded appropriately to transfusion and is now 8.2. She's had no GI output since admission. Given presentation we discussed potential for GI sources of anemia, with risk factor of chronic AC use (Eliquis). She is wondering whether it was from her chemo. On exam abd soft, nontender. - Eliquis has been held; would defer mgmt of that to primary team - Offered and recommended EGD today to evaluate for potential UGI source of bleeding such as ulcer, AVM, gastritis, etc - however pt declines to pursue this - Monitor and document GI output - Trend H&H, transfuse PRN; she is getting IV iron as well - Diet as per primary team - Offered pt OP EGD and she would be agreeable to that. Also consider colonoscopy if pt agreeable. Our office will arrange this in the next few weeks in [place] where she lives - GI will sign off, please call with questions Thank you for allowing us to participate in the care of this patient. Please call with any acute changes, questions or concerns. Please see addendum below with additional recommendation from my supervising physician. Supervising Physician Co-Signing Physician Notes I saw and evaluated the patient. We were consulted for evaluation of severe anemia. Of note the patient does have a history of ovarian cancer. Last colonoscopy was performed over a decade ago and has never been repeated. The patient denies having bright red blood per rectum or dark sticky stool. Physical examination Pleasant female no obvious distress mild pallor of skin noted Impression: Patient presented with severe anemia unclear if this is related to gastrointestinal blood loss or perhaps related to ongoing chemotherapy for her ovarian cancer. Given her history I think it would be prudent to proceed with upper endoscopy and perhaps colonoscopy if EGD is negative. The patient is reluctant to undergo procedure as an inpatient would prefer to do this from the home setting. As there is no overt evidence of bleeding such as melena, hematemesis nor hematochezia I think this would be a reasonable option for her. Recommendations Patient EGD and colonoscopy to be scheduled Supplement to be arranged by hospital service, consider use Venofir via the patient's hematology provider in [place] Please call with any questions or History of Present Illness Reason for Consultation: severe acute/chronic anemia, low Fe Requesting Physician: Dr. Valadez Attending Physician: Lucas Horan MD History of Present Illness This is a 66 y/o female with PMHx a-fib on Eliquis, ovarian CA dx'd 2015, s/p surgery, w/ recurrence last year, last chemo 1 month ago (cisplatin/Avastin), DM, HTN, hypothyroidism and others presented from cardiology d/t severe symptomatic orthostasis x a few days. Found to have severe anemia w/ HGB 4, HCT 13, (most recent was 7.9 on 09/14/21). BUN 30, INR 1.2, HCT 25, has tcytopenia w/ PLT 38, iron studies also revealed elevated TIBC and low ferritin,Denies seeing any melena or BRBPR. No h/o GI bleeding in the past. CT abd/pelvis with stable findings. No GIB since admission. Eliquis has been held. Had prolonged QT on EKG. Today is getting IV Venofer infusion. After transfusion HGB 8.2 today, BUN unchanged. VSS. She is seen sitting in bed; no complaints today. States bowels move well; every other day, formed; none since admission. Denies upper GI symptoms including abd pain, burning, heartburn, dysphagia, nausea, vomiting, hematemesis, bloating; no diarrhea, melena, hematochezia, fever, chills, dysuria, hematuria, bruising, CP, SOB. No NSAID or AC use; former smoker; no ETOH. EGD 08/2020 for epigastric pain: Normal esophagus. - Gastritis with erosions. Biopsied. - Normal examined duodenum. A. Stomach, biopsy: Gastric antral and oxyntic with mild inactive gastritis. An immunohistochemical stain for H. Pylori is negative. Pt states colonoscopy attempted years and years ago; had Demerol and wasn't sedated; wasn't able to go through with colonoscopy and hasn't wanted on since Allergies Allergy/AdvReac Type Severity Reaction Status Date / Time codeine Allergy Unknown itchy, Verified 10/07/21 16:20 nausea lisinopril Allergy Unknown Cough Verified 10/07/21 16:20 prochlorperazine AdvReac Mild Nausea Verified 10/07/21 16:20 [From Compazine] Sulfa (Sulfonamide AdvReac Mild Stomach Verified 10/07/21 16:20 Antibiotics) upset azithromycin AdvReac Nausea Verified 10/07/21 16:20 CONTRAST MEDIA AdvReac Mild RASH, Uncoded 10/07/21 16:20 TINGLING IN HANDS Home Medications Medication Instructions Recorded Confirmed Type multivitamin 1 tab PO DAILY #0 11/11/09 10/07/21 History magnesium oxide 400 mg PO DAILY #0 tab 07/18/12 10/07/21 History montelukast 10 mg tablet 10 mg PO HS #0 tab 07/18/12 10/07/21 History (Singulair) apixaban 5 mg tablet (Eliquis) 5 mg PO BID #0 08/11/15 10/07/21 History cetirizine 10 mg tablet 10 mg PO DAILY #0 tab 08/11/15 10/07/21 History clonazepam 1 mg tablet 1 mg PO HS #0 08/11/15 10/07/21 History flecainide 100 mg tablet 100 mg PO QPM #0 tab 08/11/15 10/07/21 History glyburide 5 mg tablet 5 mg PO DAILY #0 08/11/15 10/07/21 History metformin 750 mg tablet,extended 750 mg PO BID #0 08/11/15 10/07/21 History release 24 hr metoprolol succinate 50 mg 50 mg PO HS #30 tab 08/11/15 10/07/21 History tablet,extended release 24 hr rosuvastatin 20 mg tablet (Crestor) 20 mg PO DAILY 30 Days #30 tab 08/11/15 10/07/21 History lorazepam 0.5 mg tablet 0.5 mg PO DAILY PRN #0 tab 08/18/15 10/07/21 History diltiazem HCl 30 mg tablet 30 mg PO BID 04/19/19 10/07/21 History (Cardizem) docusate sodium 100 mg tablet 200 mg PO HS 04/19/19 10/07/21 History (Stool Softener) fluoxetine 40 mg capsule (Prozac) 40 mg PO QAM 04/19/19 10/07/21 History trazodone 50 mg tablet 75 mg PO HS PRN 04/19/19 10/07/21 History flecainide 50 mg tablet 50 mg PO DAILY 10/07/21 10/07/21 History zolpidem 5 mg tablet (Ambien) 5 mg PO HS PRN 10/07/21 10/07/21 History cephalexin 500 mg capsule 500 mg PO BID #4 cap 10/08/21 Rx Patient History Medical History (Updated 10/08/21 @ 09:13 by Yesika Jovel PA-C) Anxiety Atrial fibrillation Cancer ovarian Depression Diabetes mellitus, type 2 GERD (gastroesophageal reflux disease) Hypothyroidism Osteoarthritis Peripheral neuropathy Supraclavicular lymphadenopathy Surgical History (Updated 10/07/21 @ 14:45 by Latrell Valadez) H/O colonoscopy History of cardiac cath History of cholecystectomy History of hysterectomy History of hysterectomy with bilateral oophorectomy History of nasal septoplasty History of tonsillectomy History of vascular access device Family History (Updated 10/07/21 @ 14:38 by Latrell Valadez) Mother , age 86 COPD (chronic obstructive pulmonary disease) Father Lung cancer Social History (Updated 10/08/21 @ 00:18 by Latrell Valadez) Smoking Status: Former smoker Tobacco Type: Cigarettes packs per day: 0.25; Years Smoked: 40; Second Hand Exposure: No; Hx Alcohol Use: No Hx Substance Use: No Preferred Language: Cambodian Communication Ability: Effective Supervisor Dairy Sanitation Required: No Beliefs That Will Affect Care: None marital status: Current Living Situation: Spouse current occupational status: employed current occupation: works at [employer] How many Children do You have: 0 Feels Safe at Home: Yes Assistive Devices: None Review of Systems Review of Systems: All systems reviewed & are unremarkable except as noted in HPI & below Physical Exam Constitutional: WD/WN, vitals as above (chronically ill) Eyes: PERRL, conjunctivae normal, anicteric sclerae ENMT: external ear and nose normal, oropharynx normal Respiratory: normal respiratory effort, lungs clear to auscultation Cardiovascular: RRR, no murmur, no edema Gastrointestinal (Abdomen): normal bowel sounds, soft, nontender, no hepatosplenomegaly Skin: no rashes, warm and dry Psychiatric: A+Ox3, euthymic affect Results & Data ([facility]) Vital Signs (Past 12 Hours) Vital Signs Temp Pulse Pulse Resp BP BP Pulse Ox 10/08/21 09:00 62 10/08/21 07:59 36.9 C 63 20 145/73 H 94 10/08/21 06:15 37.0 C 60 18 153/78 H 94 10/08/21 05:01 37.1 C 61 18 147/75 H 95 10/08/21 04:15 37.0 C 62 18 135/74 96 10/08/21 03:15 37.0 C 60 18 130/73 95 10/08/21 02:15 36.8 C 61 18 144/79 H 94 10/08/21 01:45 36.9 C 61 16 129/74 94 10/08/21 01:30 36.9 C 61 18 125/72 97 10/08/21 01:10 36.7 C 69 18 136/71 97 10/07/21 22:29 37.1 C 64 18 152/75 H 98 10/07/21 22:17 62 10/07/21 21:35 36.5 C 62 18 159/82 H 99 Laboratory Results 10/08/21 10/08/21 10/08/21 Range/Units 07:50 06:24 06:20 WBC (4.8-10.8) K/ul RBC (3.93-5.22) M/uL Hgb (12.0-16.0) g/dl Hct (34.1-44.9) % MCV (80.0-100.0) fL MCH (25.0-34.0) pg MCHC (32.0-36.0) g/dL RDW Std Deviation (36.4-46.3) fL RDW Coeff of Teddy (11.5-14.5) % Plt Count (130-400) K/uL MPV (9.4-12.3) fL Immature Gran % (Auto) % Neut % (Auto) % Lymph % (Auto) % Taylor % (Auto) % Eos % (Auto) % Baso % (Auto) % Reticulocyte % (Auto) (0.5-2.0) % Neut # (Auto) (1.4-6.5) K/uL Lymph # (Auto) (1.2-3.4) K/uL Taylor # (Auto) (0.24-0.82) K/uL Eos # (Auto) (0-0.50) K/uL Baso # (Auto) (0-0.2) K/uL Reticulocyte # (0.02-0.10) 10^6/uL Immature Gran # (Auto) (0.00-0.02) K/uL Absolute Nucleated RBC (0-0) K/uL Nucleated RBC % (auto) % Platelet Estimate (Normal) Anisocytosis Macrocytosis Haptoglobin Pending PT (9.0-12.0) Seconds INR (0.9-1.1) APTT (21.0-31.0) Seconds PTT Ratio VBG pH (7.36-7.41) VBG pCO2 (38-50) mmHg VBG pO2 mmHg VBG HCO3 mmol/L VBG O2 Saturation % VBG Base Excess mEq/L Sodium (136-145) mmol/L Potassium (3.5-5.1) mmol/L Chloride (98-107) mmol/L Carbon Dioxide (21-32) mmol/L Anion Gap (3-11) BUN (6-23) mg/dl Creatinine (0.6-1.2) mg/dl Est Cr Clr Drug Dosing ml/min Est GFR ( Amer) ml/min Est GFR (Non-Af Amer) ml/min BUN/Creatinine Ratio (10-20) Glucose (70-99(Fasting)) mg/dl POC Glucose 134 H 103 H (70-99) mg/dl Calcium (8.5-10.1) mg/dl Magnesium (1.7-2.4) mg/dl Iron (35-150) mcg/dl TIBC (250-450) mcg/dl Unsaturated IBC (155-355) mcg/dl Transferrin % Sat (15-50) % Ferritin (8-388) ng/ml Total Bilirubin (0.2-1.0) mg/dl AST (13-39) U/L ALT (7-52) U/L Alkaline Phosphatase (34-104) U/L Lactate Dehydrogenase (86-244) U/L Troponin I High Sens (0-14) pg/ml Total Protein (6.0-8.3) gm/dl Albumin (3.4-5.0) gm/dl Globulin (2.5-4.0) gm/dl Albumin/Globulin Ratio (0.9-2) Vitamin B12 (180-914) pg/ml Folate (>5.38) ng/ml TSH (0.300-4.500) uIu/ml Urine Color Urine Appearance (Clear) Urine pH (4.5-7.5) Ur Specific Grover (1.000-1.030) Urine Protein (Negative) Urine Glucose (UA) (Negative) Urine Ketones (Negative) Urine Blood (Negative) Urine Nitrite (Negative) Urine Bilirubin (Negative) Urine Urobilinogen (Negative) Ur Leukocyte Esterase (Negative) Urine WBC (Auto) (0-5) /hpf Urine RBC (Auto) (0-4) /hpf U Hyaline Cast (Auto) (0-5) /lpf U Epithel Cells (Auto) (0-5) /lpf Urine Bacteria (Auto) (Negative) SARS-CoV-2 (PCR) (Negative) SARS-CoV-2 RNA (ARIA) Blood Type Antibody Screen Antibody Identification Antibody ID Comment Antigen Identification Crossmatch 10/08/21 10/08/21 10/08/21 Range/Units 06:20 06:20 06:20 WBC 6.36 (4.8-10.8) K/ul RBC 2.59 L (3.93-5.22) M/uL Hgb 8.2 L (12.0-16.0) g/dl Hct 25.4 L (34.1-44.9) % MCV 98.1 (80.0-100.0) fL MCH 31.7 (25.0-34.0) pg MCHC 32.3 (32.0-36.0) g/dL RDW Std Deviation 63.5 H (36.4-46.3) fL RDW Coeff of Teddy 21.6 H (11.5-14.5) % Plt Count 38 L (130-400) K/uL MPV 11.5 (9.4-12.3) fL Immature Gran % (Auto) % Neut % (Auto) % Lymph % (Auto) % Taylor % (Auto) % Eos % (Auto) % Baso % (Auto) % Reticulocyte % (Auto) 4.5 H (0.5-2.0) % Neut # (Auto) (1.4-6.5) K/uL Lymph # (Auto) (1.2-3.4) K/uL Taylor # (Auto) (0.24-0.82) K/uL Eos # (Auto) (0-0.50) K/uL Baso # (Auto) (0-0.2) K/uL Reticulocyte # 0.12 H (0.02-0.10) 10^6/uL Immature Gran # (Auto) (0.00-0.02) K/uL Absolute Nucleated RBC 0.03 H (0-0) K/uL Nucleated RBC % (auto) 0.5 % Platelet Estimate (Normal) Anisocytosis Macrocytosis Haptoglobin PT (9.0-12.0) Seconds INR (0.9-1.1) APTT (21.0-31.0) Seconds PTT Ratio VBG pH (7.36-7.41) VBG pCO2 (38-50) mmHg VBG pO2 mmHg VBG HCO3 mmol/L VBG O2 Saturation % VBG Base Excess mEq/L Sodium 137 (136-145) mmol/L Potassium 4.2 (3.5-5.1) mmol/L Chloride 104 (98-107) mmol/L Carbon Dioxide 25 (21-32) mmol/L Anion Gap 8 (3-11) BUN 30 H (6-23) mg/dl Creatinine 1.18 (0.6-1.2) mg/dl Est Cr Clr Drug Dosing 53.6 ml/min Est GFR ( Amer) 56.0 ml/min Est GFR (Non-Af Amer) 48.4 ml/min BUN/Creatinine Ratio 25.4 H (10-20) Glucose 95 (70-99(Fasting)) mg/dl POC Glucose (70-99) mg/dl Calcium 8.2 L (8.5-10.1) mg/dl Magnesium 1.1 L (1.7-2.4) mg/dl Iron (35-150) mcg/dl TIBC (250-450) mcg/dl Unsaturated IBC (155-355) mcg/dl Transferrin % Sat (15-50) % Ferritin (8-388) ng/ml Total Bilirubin (0.2-1.0) mg/dl AST (13-39) U/L ALT (7-52) U/L Alkaline Phosphatase (34-104) U/L Lactate Dehydrogenase 151 (86-244) U/L Troponin I High Sens (0-14) pg/ml Total Protein (6.0-8.3) gm/dl Albumin (3.4-5.0) gm/dl Globulin (2.5-4.0) gm/dl Albumin/Globulin Ratio (0.9-2) Vitamin B12 (180-914) pg/ml Folate (>5.38) ng/ml TSH (0.300-4.500) uIu/ml Urine Color Urine Appearance (Clear) Urine pH (4.5-7.5) Ur Specific Grover (1.000-1.030) Urine Protein (Negative) Urine Glucose (UA) (Negative) Urine Ketones (Negative) Urine Blood (Negative) Urine Nitrite (Negative) Urine Bilirubin (Negative) Urine Urobilinogen (Negative) Ur Leukocyte Esterase (Negative) Urine WBC (Auto) (0-5) /hpf Urine RBC (Auto) (0-4) /hpf U Hyaline Cast (Auto) (0-5) /lpf U Epithel Cells (Auto) (0-5) /lpf Urine Bacteria (Auto) (Negative) SARS-CoV-2 (PCR) (Negative) SARS-CoV-2 RNA (ARIA) Blood Type Antibody Screen Antibody Identification Antibody ID Comment Antigen Identification Crossmatch 10/07/21 10/07/21 10/07/21 Range/Units 23:31 20:05 17:10 WBC 6.32 (4.8-10.8) K/ul RBC 2.05 L (3.93-5.22) M/uL Hgb 6.5 L* (12.0-16.0) g/dl Hct 20.2 L* (34.1-44.9) % MCV 98.5 D (80.0-100.0) fL MCH 31.7 (25.0-34.0) pg MCHC 32.2 (32.0-36.0) g/dL RDW Std Deviation 72.3 H (36.4-46.3) fL RDW Coeff of Teddy 23.3 H (11.5-14.5) % Plt Count 38 L (130-400) K/uL MPV 11.9 (9.4-12.3) fL Immature Gran % (Auto) % Neut % (Auto) % Lymph % (Auto) % Taylor % (Auto) % Eos % (Auto) % Baso % (Auto) % Reticulocyte % (Auto) (0.5-2.0) % Neut # (Auto) (1.4-6.5) K/uL Lymph # (Auto) (1.2-3.4) K/uL Taylor # (Auto) (0.24-0.82) K/uL Eos # (Auto) (0-0.50) K/uL Baso # (Auto) (0-0.2) K/uL Reticulocyte # (0.02-0.10) 10^6/uL Immature Gran # (Auto) (0.00-0.02) K/uL Absolute Nucleated RBC 0.03 H (0-0) K/uL Nucleated RBC % (auto) 0.5 % Platelet Estimate Decreased L (Normal) Anisocytosis Macrocytosis Haptoglobin PT (9.0-12.0) Seconds INR (0.9-1.1) APTT (21.0-31.0) Seconds PTT Ratio VBG pH (7.36-7.41) VBG pCO2 (38-50) mmHg VBG pO2 mmHg VBG HCO3 mmol/L VBG O2 Saturation % VBG Base Excess mEq/L Sodium (136-145) mmol/L Potassium (3.5-5.1) mmol/L Chloride (98-107) mmol/L Carbon Dioxide (21-32) mmol/L Anion Gap (3-11) BUN (6-23) mg/dl Creatinine (0.6-1.2) mg/dl Est Cr Clr Drug Dosing ml/min Est GFR ( Amer) ml/min Est GFR (Non-Af Amer) ml/min BUN/Creatinine Ratio (10-20) Glucose (70-99(Fasting)) mg/dl POC Glucose 138 H 99 (70-99) mg/dl Calcium (8.5-10.1) mg/dl Magnesium (1.7-2.4) mg/dl Iron (35-150) mcg/dl TIBC (250-450) mcg/dl Unsaturated IBC (155-355) mcg/dl Transferrin % Sat (15-50) % Ferritin (8-388) ng/ml Total Bilirubin (0.2-1.0) mg/dl AST (13-39) U/L ALT (7-52) U/L Alkaline Phosphatase (34-104) U/L Lactate Dehydrogenase (86-244) U/L Troponin I High Sens (0-14) pg/ml Total Protein (6.0-8.3) gm/dl Albumin (3.4-5.0) gm/dl Globulin (2.5-4.0) gm/dl Albumin/Globulin Ratio (0.9-2) Vitamin B12 (180-914) pg/ml Folate (>5.38) ng/ml TSH (0.300-4.500) uIu/ml Urine Color Urine Appearance (Clear) Urine pH (4.5-7.5) Ur Specific Grover (1.000-1.030) Urine Protein (Negative) Urine Glucose (UA) (Negative) Urine Ketones (Negative) Urine Blood (Negative) Urine Nitrite (Negative) Urine Bilirubin (Negative) Urine Urobilinogen (Negative) Ur Leukocyte Esterase (Negative) Urine WBC (Auto) (0-5) /hpf Urine RBC (Auto) (0-4) /hpf U Hyaline Cast (Auto) (0-5) /lpf U Epithel Cells (Auto) (0-5) /lpf Urine Bacteria (Auto) (Negative) SARS-CoV-2 (PCR) (Negative) SARS-CoV-2 RNA (ARIA) Blood Type Antibody Screen Antibody Identification Antibody ID Comment Antigen Identification Crossmatch 10/07/21 10/07/21 10/07/21 Range/Units 11:40 11:25 11:25 WBC (4.8-10.8) K/ul RBC (3.93-5.22) M/uL Hgb (12.0-16.0) g/dl Hct (34.1-44.9) % MCV (80.0-100.0) fL MCH (25.0-34.0) pg MCHC (32.0-36.0) g/dL RDW Std Deviation (36.4-46.3) fL RDW Coeff of Teddy (11.5-14.5) % Plt Count (130-400) K/uL MPV (9.4-12.3) fL Immature Gran % (Auto) % Neut % (Auto) % Lymph % (Auto) % Taylor % (Auto) % Eos % (Auto) % Baso % (Auto) % Reticulocyte % (Auto) (0.5-2.0) % Neut # (Auto) (1.4-6.5) K/uL Lymph # (Auto) (1.2-3.4) K/uL Taylor # (Auto) (0.24-0.82) K/uL Eos # (Auto) (0-0.50) K/uL Baso # (Auto) (0-0.2) K/uL Reticulocyte # (0.02-0.10) 10^6/uL Immature Gran # (Auto) (0.00-0.02) K/uL Absolute Nucleated RBC (0-0) K/uL Nucleated RBC % (auto) % Platelet Estimate (Normal) Anisocytosis Macrocytosis Haptoglobin PT (9.0-12.0) Seconds INR (0.9-1.1) APTT (21.0-31.0) Seconds PTT Ratio VBG pH (7.36-7.41) VBG pCO2 (38-50) mmHg VBG pO2 mmHg VBG HCO3 mmol/L VBG O2 Saturation % VBG Base Excess mEq/L Sodium (136-145) mmol/L Potassium (3.5-5.1) mmol/L Chloride (98-107) mmol/L Carbon Dioxide (21-32) mmol/L Anion Gap (3-11) BUN (6-23) mg/dl Creatinine (0.6-1.2) mg/dl Est Cr Clr Drug Dosing ml/min Est GFR ( Amer) ml/min Est GFR (Non-Af Amer) ml/min BUN/Creatinine Ratio (10-20) Glucose (70-99(Fasting)) mg/dl POC Glucose (70-99) mg/dl Calcium (8.5-10.1) mg/dl Magnesium (1.7-2.4) mg/dl Iron (35-150) mcg/dl TIBC (250-450) mcg/dl Unsaturated IBC (155-355) mcg/dl Transferrin % Sat (15-50) % Ferritin (8-388) ng/ml Total Bilirubin (0.2-1.0) mg/dl AST (13-39) U/L ALT (7-52) U/L Alkaline Phosphatase (34-104) U/L Lactate Dehydrogenase (86-244) U/L Troponin I High Sens (0-14) pg/ml Total Protein (6.0-8.3) gm/dl Albumin (3.4-5.0) gm/dl Globulin (2.5-4.0) gm/dl Albumin/Globulin Ratio (0.9-2) Vitamin B12 (180-914) pg/ml Folate (>5.38) ng/ml TSH (0.300-4.500) uIu/ml Urine Color Yellow Urine Appearance Clear (Clear) Urine pH 6.5 (4.5-7.5) Ur Specific Grover 1.010 (1.000-1.030) Urine Protein Negative (Negative) Urine Glucose (UA) Negative (Negative) Urine Ketones Negative (Negative) Urine Blood Negative (Negative) Urine Nitrite Negative (Negative) Urine Bilirubin Negative (Negative) Urine Urobilinogen Negative (Negative) Ur Leukocyte Esterase Trace H (Negative) Urine WBC (Auto) 1-5 (0-5) /hpf Urine RBC (Auto) 0-4 (0-4) /hpf U Hyaline Cast (Auto) 0 (0-5) /lpf U Epithel Cells (Auto) 10-20 H (0-5) /lpf Urine Bacteria (Auto) 2+ H (Negative) SARS-CoV-2 (PCR) NEGATIVE (Negative) SARS-CoV-2 RNA (ARIA) Cancelled Blood Type Antibody Screen Antibody Identification Antibody ID Comment Antigen Identification Crossmatch 10/07/21 10/07/21 10/07/21 Range/Units 11:25 11:25 11:25 WBC (4.8-10.8) K/ul RBC (3.93-5.22) M/uL Hgb 4.0 L* (12.0-16.0) g/dl Hct 13.0 L* (34.1-44.9) % MCV (80.0-100.0) fL MCH (25.0-34.0) pg MCHC (32.0-36.0) g/dL RDW Std Deviation (36.4-46.3) fL RDW Coeff of Teddy (11.5-14.5) % Plt Count (130-400) K/uL MPV (9.4-12.3) fL Immature Gran % (Auto) % Neut % (Auto) % Lymph % (Auto) % Taylor % (Auto) % Eos % (Auto) % Baso % (Auto) % Reticulocyte % (Auto) (0.5-2.0) % Neut # (Auto) (1.4-6.5) K/uL Lymph # (Auto) (1.2-3.4) K/uL Taylor # (Auto) (0.24-0.82) K/uL Eos # (Auto) (0-0.50) K/uL Baso # (Auto) (0-0.2) K/uL Reticulocyte # (0.02-0.10) 10^6/uL Immature Gran # (Auto) (0.00-0.02) K/uL Absolute Nucleated RBC (0-0) K/uL Nucleated RBC % (auto) % Platelet Estimate (Normal) Anisocytosis Macrocytosis Haptoglobin PT (9.0-12.0) Seconds INR (0.9-1.1) APTT (21.0-31.0) Seconds PTT Ratio VBG pH 7.42 H (7.36-7.41) VBG pCO2 39 (38-50) mmHg VBG pO2 29 mmHg VBG HCO3 25 mmol/L VBG O2 Saturation < 60.0 % VBG Base Excess 0.8 mEq/L Sodium (136-145) mmol/L Potassium (3.5-5.1) mmol/L Chloride (98-107) mmol/L Carbon Dioxide (21-32) mmol/L Anion Gap (3-11) BUN (6-23) mg/dl Creatinine (0.6-1.2) mg/dl Est Cr Clr Drug Dosing ml/min Est GFR ( Amer) ml/min Est GFR (Non-Af Amer) ml/min BUN/Creatinine Ratio (10-20) Glucose (70-99(Fasting)) mg/dl POC Glucose (70-99) mg/dl Calcium (8.5-10.1) mg/dl Magnesium (1.7-2.4) mg/dl Iron (35-150) mcg/dl TIBC (250-450) mcg/dl Unsaturated IBC (155-355) mcg/dl Transferrin % Sat (15-50) % Ferritin (8-388) ng/ml Total Bilirubin (0.2-1.0) mg/dl AST (13-39) U/L ALT (7-52) U/L Alkaline Phosphatase (34-104) U/L Lactate Dehydrogenase (86-244) U/L Troponin I High Sens (0-14) pg/ml Total Protein (6.0-8.3) gm/dl Albumin (3.4-5.0) gm/dl Globulin (2.5-4.0) gm/dl Albumin/Globulin Ratio (0.9-2) Vitamin B12 (180-914) pg/ml Folate (>5.38) ng/ml TSH (0.300-4.500) uIu/ml Urine Color Urine Appearance (Clear) Urine pH (4.5-7.5) Ur Specific Grover (1.000-1.030) Urine Protein (Negative) Urine Glucose (UA) (Negative) Urine Ketones (Negative) Urine Blood (Negative) Urine Nitrite (Negative) Urine Bilirubin (Negative) Urine Urobilinogen (Negative) Ur Leukocyte Esterase (Negative) Urine WBC (Auto) (0-5) /hpf Urine RBC (Auto) (0-4) /hpf U Hyaline Cast (Auto) (0-5) /lpf U Epithel Cells (Auto) (0-5) /lpf Urine Bacteria (Auto) (Negative) SARS-CoV-2 (PCR) (Negative) SARS-CoV-2 RNA (ARIA) Blood Type O Positive Antibody Screen POSITIVE A Antibody Identification Anti-K Antibody ID Comment Antigen Identification K Antigen - NEGATIVE Crossmatch See Detail 10/07/21 10/07/21 10/07/21 Range/Units 10:34 10:34 10:34 WBC (4.8-10.8) K/ul RBC (3.93-5.22) M/uL Hgb (12.0-16.0) g/dl Hct (34.1-44.9) % MCV (80.0-100.0) fL MCH (25.0-34.0) pg MCHC (32.0-36.0) g/dL RDW Std Deviation (36.4-46.3) fL RDW Coeff of Teddy (11.5-14.5) % Plt Count (130-400) K/uL MPV (9.4-12.3) fL Immature Gran % (Auto) % Neut % (Auto) % Lymph % (Auto) % Taylor % (Auto) % Eos % (Auto) % Baso % (Auto) % Reticulocyte % (Auto) (0.5-2.0) % Neut # (Auto) (1.4-6.5) K/uL Lymph # (Auto) (1.2-3.4) K/uL Taylor # (Auto) (0.24-0.82) K/uL Eos # (Auto) (0-0.50) K/uL Baso # (Auto) (0-0.2) K/uL Reticulocyte # (0.02-0.10) 10^6/uL Immature Gran # (Auto) (0.00-0.02) K/uL Absolute Nucleated RBC (0-0) K/uL Nucleated RBC % (auto) % Platelet Estimate (Normal) Anisocytosis Macrocytosis Haptoglobin PT (9.0-12.0) Seconds INR (0.9-1.1) APTT (21.0-31.0) Seconds PTT Ratio VBG pH (7.36-7.41) VBG pCO2 (38-50) mmHg VBG pO2 mmHg VBG HCO3 mmol/L VBG O2 Saturation % VBG Base Excess mEq/L Sodium (136-145) mmol/L Potassium (3.5-5.1) mmol/L Chloride (98-107) mmol/L Carbon Dioxide (21-32) mmol/L Anion Gap (3-11) BUN (6-23) mg/dl Creatinine (0.6-1.2) mg/dl Est Cr Clr Drug Dosing ml/min Est GFR ( Amer) ml/min Est GFR (Non-Af Amer) ml/min BUN/Creatinine Ratio (10-20) Glucose (70-99(Fasting)) mg/dl POC Glucose (70-99) mg/dl Calcium (8.5-10.1) mg/dl Magnesium (1.7-2.4) mg/dl Iron 111 (35-150) mcg/dl TIBC 460 H (250-450) mcg/dl Unsaturated IBC 349 (155-355) mcg/dl Transferrin % Sat 24 (15-50) % Ferritin 26.3 (8-388) ng/ml Total Bilirubin (0.2-1.0) mg/dl AST (13-39) U/L ALT (7-52) U/L Alkaline Phosphatase (34-104) U/L Lactate Dehydrogenase (86-244) U/L Troponin I High Sens (0-14) pg/ml Total Protein (6.0-8.3) gm/dl Albumin (3.4-5.0) gm/dl Globulin (2.5-4.0) gm/dl Albumin/Globulin Ratio (0.9-2) Vitamin B12 > 1500 H (180-914) pg/ml Folate > 22.30 (>5.38) ng/ml TSH 3.682 (0.300-4.500) uIu/ml Urine Color Urine Appearance (Clear) Urine pH (4.5-7.5) Ur Specific Grover (1.000-1.030) Urine Protein (Negative) Urine Glucose (UA) (Negative) Urine Ketones (Negative) Urine Blood (Negative) Urine Nitrite (Negative) Urine Bilirubin (Negative) Urine Urobilinogen (Negative) Ur Leukocyte Esterase (Negative) Urine WBC (Auto) (0-5) /hpf Urine RBC (Auto) (0-4) /hpf U Hyaline Cast (Auto) (0-5) /lpf U Epithel Cells (Auto) (0-5) /lpf Urine Bacteria (Auto) (Negative) SARS-CoV-2 (PCR) (Negative) SARS-CoV-2 RNA (ARIA) Blood Type Antibody Screen Antibody Identification Antibody ID Comment Antigen Identification Crossmatch 10/07/21 10/07/21 10/07/21 Range/Units 10:34 10:34 10:34 WBC 6.29 (4.8-10.8) K/ul RBC 1.07 L (3.93-5.22) M/uL Hgb 3.8 L* (12.0-16.0) g/dl Hct 12.2 L* (34.1-44.9) % MCV 114.0 H (80.0-100.0) fL MCH 35.5 H (25.0-34.0) pg MCHC 31.1 L (32.0-36.0) g/dL RDW Std Deviation 93.5 H (36.4-46.3) fL RDW Coeff of Teddy 23.0 H (11.5-14.5) % Plt Count 42 L (130-400) K/uL MPV 11.5 (9.4-12.3) fL Immature Gran % (Auto) 0.6 % Neut % (Auto) 71.0 % Lymph % (Auto) 13.8 % Taylor % (Auto) 14.1 % Eos % (Auto) 0.3 % Baso % (Auto) 0.2 % Reticulocyte % (Auto) (0.5-2.0) % Neut # (Auto) 4.46 (1.4-6.5) K/uL Lymph # (Auto) 0.87 L (1.2-3.4) K/uL Taylor # (Auto) 0.89 H (0.24-0.82) K/uL Eos # (Auto) 0.02 (0-0.50) K/uL Baso # (Auto) 0.01 (0-0.2) K/uL Reticulocyte # (0.02-0.10) 10^6/uL Immature Gran # (Auto) 0.04 H (0.00-0.02) K/uL Absolute Nucleated RBC 0.03 H (0-0) K/uL Nucleated RBC % (auto) 0.5 % Platelet Estimate (Normal) Anisocytosis Present Macrocytosis Present Haptoglobin PT 12.2 H (9.0-12.0) Seconds INR 1.2 H (0.9-1.1) APTT 71.8 H* (21.0-31.0) Seconds PTT Ratio 2.6 VBG pH (7.36-7.41) VBG pCO2 (38-50) mmHg VBG pO2 mmHg VBG HCO3 mmol/L VBG O2 Saturation % VBG Base Excess mEq/L Sodium 136 (136-145) mmol/L Potassium 4.5 (3.5-5.1) mmol/L Chloride 103 (98-107) mmol/L Carbon Dioxide 23 (21-32) mmol/L Anion Gap 10 (3-11) BUN 31 H (6-23) mg/dl Creatinine 1.35 H (0.6-1.2) mg/dl Est Cr Clr Drug Dosing 46.8 ml/min Est GFR ( Amer) 47.6 ml/min Est GFR (Non-Af Amer) 41.1 ml/min BUN/Creatinine Ratio 23.0 H (10-20) Glucose 188 H (70-99(Fasting)) mg/dl POC Glucose (70-99) mg/dl Calcium 8.4 L (8.5-10.1) mg/dl Magnesium (1.7-2.4) mg/dl Iron (35-150) mcg/dl TIBC (250-450) mcg/dl Unsaturated IBC (155-355) mcg/dl Transferrin % Sat (15-50) % Ferritin (8-388) ng/ml Total Bilirubin 0.7 (0.2-1.0) mg/dl AST 15 (13-39) U/L ALT 10 (7-52) U/L Alkaline Phosphatase 54 (34-104) U/L Lactate Dehydrogenase (86-244) U/L Troponin I High Sens 7.1 (0-14) pg/ml Total Protein 6.0 (6.0-8.3) gm/dl Albumin 3.5 (3.4-5.0) gm/dl Globulin 2.5 (2.5-4.0) gm/dl Albumin/Globulin Ratio 1.4 (0.9-2) Vitamin B12 (180-914) pg/ml Folate (>5.38) ng/ml TSH (0.300-4.500) uIu/ml Urine Color Urine Appearance (Clear) Urine pH (4.5-7.5) Ur Specific Grover (1.000-1.030) Urine Protein (Negative) Urine Glucose (UA) (Negative) Urine Ketones (Negative) Urine Blood (Negative) Urine Nitrite (Negative) Urine Bilirubin (Negative) Urine Urobilinogen (Negative) Ur Leukocyte Esterase (Negative) Urine WBC (Auto) (0-5) /hpf Urine RBC (Auto) (0-4) /hpf U Hyaline Cast (Auto) (0-5) /lpf U Epithel Cells (Auto) (0-5) /lpf Urine Bacteria (Auto) (Negative) SARS-CoV-2 (PCR) (Negative) SARS-CoV-2 RNA (ARIA) Blood Type Antibody Screen Antibody Identification Antibody ID Comment Antigen Identification Crossmatch Diagnostic Findings CTAP Lung base: The lung bases are clear. Calcification is again seen the right middle lobe. Abdominal cavity: There is no evidence for abdominal mass, adenopathy or ascites. There is a recurrent umbilical hernia with bowel loops seen projecting into the hernia sac. There is again a calcified nodule seen within the hernia as well. Additional calcified lymph nodes/masses are again seen within the retroperitoneum, sarbjit hepatis, right pelvic sidewall, right rectus abdominal muscle and left anterior abdominal wall which are again not significantly changed. No definite new masses are identified. Liver: The liver is homogeneous in attenuation on these limited noncontrast images.. Spleen: The spleen is homogeneous in attenuation on these limited noncontrast images. Pancreas: The pancreas is homogeneous in attenuation on these limited noncontrast images. Gall Bladder: Surgical clips are again seen. Adrenal glands: The adrenal glands are normal in size and attenuation on these limited noncontrast images. Kidneys: The kidneys are homogeneous in attenuation on these limited noncontrast images. There is no evidence for gross renal mass, calculus or hydronephrosis bilaterally. Bowel: The bowel loops are normally placed within the abdomen and pelvis without evidence for dilatation or obstruction. There is no evidence for mass lesion. There are no inflammatory changes present. There is no evidence for free air. Bladder: There is distention of the bladder with no evidence for focal bladder wall thickening, calculus or diverticulum. : There is no evidence for pelvic mass or adenopathy. The patient is again status post hysterectomy with no recurrent pelvic mass Vasculature: There is no evidence for focal aneurysmal dilatation of the abdominal aorta. Atherosclerotic calcification is present. Osseous structures: There is no acute osseous pathology. Degenerative changes are seen within the spine. IMPRESSION: 1. Interval recurrence of umbilical hernia with bowel loops extending into the hernia sac. No obstruction or incarceration. 2. No other evidence for acute intra-abdominal or pelvic abnormality on these limited noncontrast images. 3. Calcified lymph nodes/masses are again seen and essentially unchanged with no new metastatic disease identified. CXR: The cardiac silhouette is enlarged. Right IJ Omsrys-q-Scce catheter is noted with distal tip in the location of the mid SVC. Mild right hemidiaphragmatic elevation. Mild linear scarring versus atelectasis of the right midlung. No pneumothorax, pleural effusion, airspace consolidation or overt pulmonary edema. Hyperdense structure in the medial right lung base redemonstrated. Right-sided rotator cuff calcific tendinosis. 1.9 cm calcified structure superior to the left clavicle redemonstrated. IMPRESSION: 1. Cardiomegaly without acute process. 2. Unchanged right hemidiaphragmatic elevation with linear right midlung atelectasis/scarring.
--- NOTE | 2021-10-08 09:16 | Consultation Report ---
CONSULTATION NOTE DATE OF SERVICE: 10/08/2021. REASON FOR CONSULTATION: Stage IV ovarian cancer, severe anemia and thrombocytopenia. HISTORY OF PRESENT ILLNESS: The patient is a 66-year-old female with history of stage IV ovarian cancer for which she follows with Dr. Connor Mcgovern [place] [facility] [place] She also follows up with Dr. Burgos of [facility] at [facility]. Patient presented with severe orthostatic hypotension noted during recent Cardiology visit with Dr. Lizarraga for which she was asked to present to the ER. On arrival to the ER, she was noted to have significant anemia with hemoglobin of 4.0 and hematocrit of 13 with thrombocytopenia and platelet count of 42. She was transfused with several units of PRBC with most recent blood work obtained today showing hemoglobin of 8.2 and hematocrit of 25.4 with platelet count of 38,000, and normal white count of 6000. The patient indicates that she most recently received chemotherapy with cisplatin/Doxorubicin/Avastin about 3 weeks ago and was scheduled to receive cycle 4 of treatment next week. She states that she is doing a lot better now with resolution of dizziness. Denies headaches, dizziness, blurry vision, abdominal pain, nausea, vomiting, hematochezia, hematemesis. HOME MEDICATIONS: 1. Montelukast 10 mg p.o. daily. 2. Apixaban 5 mg p.o. b.i.d. 3. Cetirizine 10 mg p.o. daily. 4. Glyburide 5 mg p.o. daily. 5. Metformin 750 mg p.o. b.i.d. 6. Metoprolol 50 mg p.o. daily. 7. Rosuvastatin 20 mg p.o. daily. 8. Lorazepam 0.5 mg p.o. daily/p.r.n. 9. Diltiazem 30 mg p.o. b.i.d. 10. Fluoxetine 40 mg p.o. daily. 11. Trazodone 75 mg p.o. at bedtime. 12. Flecainide 50 mg p.o. daily. 13. Zolpidem 5 mg p.o. p.r.n. PAST MEDICAL HISTORY: 1. Atrial fibrillation. 2. Ovarian cancer. 3. Depression. 4. Diabetes mellitus. 5. GERD. 6. Hypothyroidism. 7. Osteoarthritis. PAST SURGICAL HISTORY: 1. Cholecystectomy. 2. Hysterectomy with bilateral oophorectomy. 3. Tonsillectomy. FAMILY HISTORY: Noncontributory. SOCIAL HISTORY: Denies current history of smoking. Quit smoking several years ago. Prior to this, smoked about half a pack of cigarettes per day for 40 years. Denies alcohol and illicit drug use. REVIEW OF SYSTEMS: CONSTITUTIONAL: Denies weight loss, fevers or chills. CARDIOVASCULAR: Denies chest pain, palpitations, dizziness, or diaphoresis. RESPIRATORY: Denies shortness of breath or cough. GASTROINTESTINAL: Denies abdominal pain, diarrhea, hematemesis, melena, nausea, vomiting or dyspepsia. GENITOURINARY: Denies urinary frequency, hematuria or dysuria. NEUROLOGIC: Denies headaches, dizziness, or blurry vision. LYMPHATICS: Negative for abnormal bleeding, or new adenopathy. PHYSICAL EXAMINATION: VITAL SIGNS: Blood pressure 153/78, heart rate 63, respiratory rate 20, temperature 36.9 degrees Celsius, oxygen saturation 94% on room air. EYES: No conjunctival erythema or icterus. ENT: Negative for masses. NECK: Negative for palpable masses. RESPIRATORY: Lung sounds are clear bilaterally. CARDIOVASCULAR: Heart rate was irregularly irregular. GASTROINTESTINAL: No palpable hepatosplenomegaly. ABDOMEN: Soft with normal bowel sounds. LYMPHATIC: No peripheral lymphadenopathy. EXTREMITIES: No peripheral edema. LABORATORY DATA: CBC on 10/07/2021, significant for white count of 6.1, hemoglobin 4.0, hematocrit 13 with MCV of 114 and platelet count of 42,000. CBC on 10/08/2021, significant for white count of 6.36, hemoglobin of 8.2, hematocrit of 25.4, MCV of 98.1 and platelet count of 830,000. Reticulocyte count of 4.5% with absolute reticulocyte of 0.12. LDH 151. Haptoglobin pending. Coagulation PT 12.2, INR 1.2, PTT 71.8. IMAGING STUDIES: 1. CT abdomen and pelvis on 10/07/2020 significant for interval recurrence of umbilical hernia with bowel loops extending into the hernia sac, no obstruction 2. No other evidence of acute intra-abdominal or pelvic abnormality. 3. Calcified lymph node/masses which are essentially unchanged with no metastatic disease identified. ASSESSMENT/PLAN: A pleasant 66-year-old female with stage IV ovarian cancer for which she is currently under the care of Dr. Connor Mcgovern at [facility]. The patient was most recently on cisplatin/Doxil/Avastin and presented with severe symptomatic anemia. Initial laboratory findings revealed significantly low hemoglobin of 4 with hematocrit of 13, and platelet count of 42,000. Of note, iron studies also revealed elevated TIBC and low ferritin, which is suggestive of iron deficiency. Her severe anemia is most likely multifactorial due to combination of cisplatin/doxil as well as iron deficiency. No evidence to suggest hemolysis with normal LDH and normal bilirubin. As such, her anemia is most likely multifactorial due to iron deficiency as well as chemotherapy. Would recommend IV Venofer 300 mg x3 doses. Would also recommend repeating coagulation studies given very prolonged PTT of 71 as well as PTT mixing study to assess for inhibitors if PTT remains prolonged. Defer decision on chemo dose reduction to Dr. Mcgovern who she is already scheduled to see next week. Thank you for this consult. Hematology continue following the patient while in the hospital. Feel free to call if you have any further questions. Job ID: [id number] [facility], [place]
[2021-10-08] MEDS: MAGNESIUM SULFATE / D5W 1 GM/100 ML BAG IV SCH ×4 (09:37→15:33)
[2021-10-08 13:23] LABS: Partial Thromboplastin Ratio 1.1; Partial Thromboplastin Time 29.3 Seconds (21.0-31.0); Prothrombin Time 11.1 Seconds (9.0-12.0)
--- NOTE | 2021-10-08 14:57 | Discharge Summary ---
Date of Service October 08, 2021 Admission HPI Per Admitting Provider 66yo female with history of a.fib - followed by Dr Deacon Lizarraga [facility] cardiology - presents from that office due to severe orthostasis. For the last few days she has felt very dizzy and lightheaded with standing/activity. No syncope but has had near-syncope. Walking has been very difficulty because of the dizziness. No vertigo. Symptoms started last . Denies seeing any melena or BRBPR. No h/o GI bleeding in the past. Due to the persistent dizziness she was concerned that perhaps it was her a.fib causing the symptoms. Thus, she called to schedule a visit with Dr Lizarraga and did see him in the office today. While at that visit she had severe orthostatic hypotension on orthostatic checks. EKG showed NSR. She was referred to the ER for evaluation. In addition to the above she has felt short of breath for some time (months or longer) but it got significantly worse in the last few days. Last chemotherapy was about 1 month ago (Avastin/cisplatin to her recollection). Cycles are q4 weeks. Current chemotherapy is under the direction of Dr Connor Mcgovern, oncologist in [place]. Last office visit with him was also about 1 month ago. Ovarian cancer - initial dx May 2015. She was initially treated at [facility]. She had cancer recurrence and treatment resumed about [address] Mcgovern's guidance. She has not required blood transfusion in the last year. No nutritional deficiencies have been noted by her primary oncologist/community health program coordinator. Also sees Dr Irineo Burgos at [facility] (gyne onc). Principal Diagnosis Anemia Discharge Exam Constitutional WD/WN, vitals as above Eyes EOM intact bilaterally; no conjunctival abnormality ENMT external ear and nose normal, oropharynx normal Neck trachea midline, no thyromegaly normal visual inspection Respiratory normal respiratory effort, lungs clear to auscultation no respiratory distress Cardiovascular RRR, no murmur, no edema Gastrointestinal (Abdomen) Inspection/Auscultation: abdomen normal to inspection; abdomen not distended Musculoskeletal no cyanosis or clubbing, extremities motor strength 5/5 Skin no rashes, warm and dry Neurologic moves all extremities and awake Psychiatric Orientation: alert, oriented to person and cooperative Discharge Data Allergies Allergy/AdvReac Type Severity Reaction Status Date / Time codeine Allergy Unknown itchy, Verified 10/07/21 16:20 nausea lisinopril Allergy Unknown Cough Verified 10/07/21 16:20 prochlorperazine AdvReac Mild Nausea Verified 10/07/21 16:20 [From Compazine] Sulfa (Sulfonamide AdvReac Mild Stomach Verified 10/07/21 16:20 Antibiotics) upset azithromycin AdvReac Nausea Verified 10/07/21 16:20 CONTRAST MEDIA AdvReac Mild RASH, Uncoded 10/07/21 16:20 TINGLING IN HANDS Consultations 10/07/21 14:13 ED Decision to Admit Stat 10/08/21 00:15 Consult Gastroenterology Routine 10/08/21 07:00 Consult Hematology Routine Procedures Performed Operation Date: 10/08/21 16:00 <No data on this case meets the specified criteria> Ordered Studies 10/07/21 12:11 CT abd pelvis wo con Stat Hospital Course (1) Macrocytic anemia: SEVERE, with presenting Hb of 4. Dr Roca, ER attending, obtained old records and her hemoglobin was 7.9 on September 14, 2021. To the patient's knowledge she has never been told she had nutritional deficiencies. She has not required pRBC support in several years even in the face of her ad vanced ovarian cancer. Her dizziness, dyspnea, etc are all likely due to the severe anemia. B12/folate/TSH levels are all wnl. Fe studies show low ferritin in the mid 20s. She has not had overt melena or BRBPR. [id number] she is at risk of occult GI bleeding because of her Eliquis use. Perhaps her chemotherapy is contributing to the macrocytosis. She could also have other micronutrient deficiencies (copper, etc) although these are rare. -> S/p 3 units of PRBCs with hgb up to 8.2 afterwards. - Seen by GI - Patient declined an EGD/colo while inpatient; however, had no major signs of bleeding, so will pursue outpatient. - Discussed with oncology who felt that this was combination of iron deficiency and chemotherapy. [place] she was stable for discharge. (2) Dizziness: 2nd to severe anemia with resulting orthostasis. Orthostasis/dizziness should improve promptly with blood transfusion. (3) Thrombocytopenia: Severe. B12/folate wnl. No evidence of TTP based on CBC and other labs (stable renal function, no schistocytes, mental status wnl, etc). - 2nd to her chemotherapy (cisplatin) that was given within the last 2-3 weeks. - HOLD Eliquis due to high risk of bleeding. (4) Ovarian cancer: Stage 4. Initial dx 2015. Follows with Dr Mcgovern in [place]. See HPI for further details. CT abd/pelvis with stable findings per radiology. (5) Hypertension: Stable after transfusions. - Continue home meds (6) History of hysterectomy with bilateral oophorectomy: 2nd ovarian ca. (7) UTI (urinary tract infection): patient reports urinary frequency. 2+ bacteria on urine micro. send culture. start keflex 500mg BID for simple, uncomplicated UTI. (8) Prolonged QT interval: 2nd to flecainide, fluoxetine, trazodone. place on telemetry. (9) Supraclavicular lymphadenopathy: left. 2nd ovarian cancer. per patient the node has gotten smaller within the last few months with chemo. (10) PAF (paroxysmal atrial fibrillation): In NSR at time of admission. Follows with Dr Lizarraga. Remains on CCB, BB, and flecainide. HOLD ELIQUIS given severe anemia with severe thrombocytopenia and heightened bleeding risk. - Monitored on tele - QTc was 430 on discharge. Can f/u with outpatient cardiology. (11) Hypothyroidism: TSH wnl cont synthroid (12) Diabetes mellitus, type 2: No changes in care. Total Time Total Time Spent Total Time Spent (In Minutes): 35 Discharge Plan Discharge Items Patient Disposition: Home - Self-Care Reason For Visit: SYMPTOMATIC ANEMIA Discharge Diagnosis: Symptomatic anemia Activity: Resume your previous activity Non-emergency contact: Primary Care Provider and Oncologist Call non-emergency contact if: your symptoms worsen Follow-up/Referrals: Stacia Rajput DO [Primary Care Provider] - Diet: Regular Addtl Attending Provider Instructions: Clemente Mary, You were admitted to the hospital with anemia that was probably from a combination of iron deficiency and your chemotherapy agents. There was some concern that you were bleeding when you first came in, but we think this is fairly unlikely apart from some mild hemorrhoid bleeding that your doctors already know about. The GI team saw you and offered you an EGD and colonoscopy, but you would prefer to pursue this as an outpatient. For now, I would recommend holding your Eliquis. Your stroke risk from your atrial fibrillation is only 5% per year (so only 0.013% per day). This is obviously a very low risk, though not zero. I would wait to restart your Eliquis until the procedures are done to be more certain there is no small bleeding. The GI team would ask you to hold the Eliquis for 3 days prior the procedures in any event, so holding it for just a few extra days will barely affect your stroke risk. On top of this, your platelets are also low (again, likely from the chemotherapy) meaning your bleeding risk is higher than usual, so I think the risks outweigh the benefits until you are cleared from the bleeding standpoint and your counts go back to normal. Please follow up with Dr. Mcgovern next week to check your blood counts and discuss this episode of anemia. He may elect to give you more IV iron as well since your stores of iron are quite low. You can also discuss if it is the right time to restart your apixaban then too. Finally, we gave you 2 more days of antibiotics to be sure you have cleared your urinary tract infection. Pending Studies at Discharge: No Stand-Alone Forms: My [facility], Smoking Cessation Medications and DC Order Prescriptions: New cephalexin 500 mg Capsule 500 mg PO BID Qty: 4 RF: 0 Continued multivitamin Tablet 1 tab PO DAILY Qty: 0 RF: 0 montelukast [Singulair] 10 mg Tablet 10 mg PO HS Qty: 0 RF: 0 magnesium oxide 400 mg magnesium Capsule 400 mg PO DAILY Qty: 0 RF: 0 cetirizine 10 mg Tablet 10 mg PO DAILY Qty: 0 RF: 0 glyburide 5 mg Tablet 5 mg PO DAILY Qty: 0 RF: 0 metoprolol succinate 50 mg Tablet Extended Release 24 Hr 50 mg PO HS Qty: 30 RF: 0 clonazepam 1 mg Tablet 1 mg PO HS Qty: 0 RF: 0 flecainide 100 mg Tablet 100 mg PO QPM Qty: 0 RF: 0 metformin 750 mg Tablet Extended Release 24 Hr 750 mg PO BID Qty: 0 RF: 0 rosuvastatin [Crestor] 20 mg Tablet 20 mg PO DAILY 30 Days Qty: 30 RF: 5 lorazepam 0.5 mg Tablet 0.5 mg PO DAILY PRN (Reason: Anxiety) Qty: 0 RF: 0 fluoxetine [Prozac] 40 mg Capsule 40 mg PO QAM RF: 0 diltiazem HCl [Cardizem] 30 mg Tablet 30 mg PO BID RF: 0 docusate sodium [Stool Softener] 100 mg Tablet 200 mg PO HS RF: 0 trazodone 50 mg Tablet 75 mg PO HS PRN (Reason: Sleep) RF: 0 flecainide 50 mg Tablet 50 mg PO DAILY RF: 0 zolpidem [Ambien] 5 mg Tablet 5 mg PO HS PRN (Reason: Sleep) RF: 0 Discontinued Eliquis 5 mg Tablet 5 mg PO BID Qty: 0 RF: 0 Discharge Orders: Discharge Order (Routine); Ordered 10/08/21 Ordered By: Lucas Horan Admission Data Admit Date/Time: 10/07/21 15:13 Attending Provider: Lucas Horan Admit Provider: Latrell Valadez Primary Care Provider: Stacia Rajput Other Providers: Miladys Rose ; Lucas Horan ; Josue Cisse Coding Level of Care Code D/C DAY MANAGEMENT >30 MINS Diagnoses Macrocytic anemia D53.9 Dizziness R42 Thrombocytopenia D69.6 Ovarian cancer C56.9 Hypertension I10 History of hysterectomy with bilateral oophorectomy Z90.710; Z90.722 UTI (urinary tract infection) N39.0 Prolonged QT interval R94.31 Supraclavicular lymphadenopathy R59.0 PAF (paroxysmal atrial fibrillation) I48.0 Hypothyroidism E03.9 Diabetes mellitus, type 2 E11.9
== END 2021-10-08 18:05 | disposition home or self-care (01) | DRG 812 ==
LOC: ED 09:51 → SUATTDRO 15:13 → 2N 15:13